=== PATIENT | female | born 1995 | race Two or more races ===

== ENCOUNTER 2024-07-24 22:54 | Emergency (ER) | payer MEDICAID, SELFPAY ==
[2024-07-24 22:55] VITALS: BMI 31.6
[2024-07-24 23:07] VITALS: BP 151/92; PULSE 98; RESP 18; TEMP 36.8; O2SAT 96
--- NOTE | 2024-07-24 23:10 | EDNOTE_ITS ---
ED Female Urogenital RME/HPI General Chief complaint: OB/Uterine Contractions Stated complaint: PREG 12WKS/ ABD PAIN Time Seen by Provider: 07/24/24 23:09 Arrival date/time: 07/24/24 22:54 29F G7/8P2 (patient does not remember) around 12 weeks with history of DM and drug use presents to ED with 1 day of pelvic pain, but denies vaginal bleeding. There may be some dysuria. Limitations: no limitations Related Data Previous Rx's ?Medication ?Instructions ?Recorded ibuprofen 600 mg tablet 600 mg PO Q6H #30 tabs 06/16/24 cefuroxime axetil 500 mg tablet 500 mg PO BID 7 days #14 tabs 07/25/24 Allergies Allergy/AdvReac Type Severity Reaction Status Date / Time No Known Allergies Allergy Verified 06/16/24 17:50 Review of Systems Review of Systems Systems Reviewed: All systems reviewed, normal except as documented Constitutional Constitutional: Reports system reviewed and no additional complaints, except as documented, Denies fever(s) and Denies headache(s) ENT Ears, Nose, Mouth, and Throat: Denies disequilibrium and Denies headache(s) Cardiovascular Cardiovascular: Reports system reviewed and no additional complaints, except as documented, Denies chest pain and Denies dyspnea Respiratory Respiratory: Reports system reviewed and no additional complaints, except as documented, Denies cough and Denies dyspnea Gastrointestinal Gastrointestinal: Reports system reviewed and no additional complaints, except as documented, Denies abdominal pain, Denies nausea and Denies vomiting Genitourinary Genitourinary: Reports as per HPI and Reports pelvic pain Neurologic Neurologic: Reports system reviewed and no additional complaints, except as documented, Denies confusion, Denies disequilibrium and Denies headache(s) Psychiatric Psychiatric: Denies confusion Past Medical History Past Medical History NEUROLOGIC: Negative Neurological Disorders or Seizures CARDIAC: Positive Cardiac Disorders and Hypertension (PIH); Negative Congestive Heart Failure RESPIRATORY: Negative Chronic Obstructive Pulmonary Disease (COPD) or Asthma GASTROINTESTINAL: Positive Gastrointestinal Disorders and Obesity; Negative Hepatitis GENITOURINARY: Positive Genitourinary Disorders (hx UTI); Negative Renal Disease REPRODUCTIVE: Positive Previous Pregnancies; Negative Breast Cancer MUSCULOSKELETAL: Negative Musculoskeletal Disorders ENDOCRINE: Positive Endocrine Disorders and Diabetes Mellitus Type 2; Negative Diabetes Mellitus Type 1 HEMATOLOGIC: Negative Blood Disorders or Sickle Cell Disease PSYCHO/SOCIAL: Positive Anxiety OTHER HISTORY: Negative Hospitalization, Autoimmune Disease, Down Syndrome, Developmental Delay, Shingles, Falls, Blood Transfusions, Blood Transfusion Reaction, Anesthesia Reactions, Organ Transplant, Chemotherapy, Radiation Therapy, Hyperbaric Therapy, MRSA, VRSA, Vancomycin-Resistant Enterococci, Human Immunodeficiency Virus (HIV), Chicken Pox, Measles, Mumps, Rubella (Welsh Measles), Pertussis, Clostridium Difficile or Breast Cancer Family History FAMILY HISTORY: Positive Family Cardiac Disorders (uncle); Negative Family Psychiatric Problems, Family Respiratory Disorders, Family Gastrointestinal Problems, Family Cancer, Family Surgery or Family Anesthesia Reaction Surgical History SURGICAL: Positive Tonsillectomy; Negative Cardiac Surgery, Endocrine Surgery, Abdominal Surgery, Section or Organ Transplant Social History SMOKING STATUS: Current some day smoker SECOND HAND EXPOSURE: No ED Exam General Limitations: Present no limitations General appearance: Present alert and in no apparent distress Head Head exam: Present atraumatic Eye Eye exam: Present normal appearance, PERRL and EOMI ENT ENT exam: Present normal exam, normal oropharynx and mucous membranes moist Neck Neck exam: Present normal inspection, full ROM and trachea midline Chest Chest inspection: Present normal inspection and symmetric chest wall rise Respiratory Respiratory exam: Present normal lung sounds bilaterally Cardiovascular Cardiovascular exam: Present regular rate, normal rhythm and normal heart sounds Abdominal Exam Abdominal exam: Present soft and normal bowel sounds Extremities Exam Extremities exam: Present normal inspection and full ROM Back Exam Back exam: Present normal inspection and full ROM Neurological Exam Neurological exam: Present alert, oriented X3 and CN II-XII intact Psychiatric Psychiatric exam: Present normal affect and normal mood Skin Skin exam: Present warm, dry, intact and normal color Course Quality Measures none Orders Category Date Time Status US OB <= 14 weeks fetus Stat Exams 07/24/24 23:13 Taken ABO/RH Type Stat Lab 07/24/24 23:56 Completed Beta HCG,Quantitative Stat Lab 07/24/24 23:56 Completed CBC Stat Lab 07/24/24 23:56 Completed CMP [Comprehensive Metabolic Panel] Stat Lab 07/24/24 23:56 Completed UA [Urinalysis] Stat Lab 07/24/24 23:37 Completed Urine Culture Stat Lab 07/24/24 23:37 Received cefuroxime axetiL [cefUROXime axetil] Med 07/25/24 02:09 Discontinued 500 mg PO X1 ONE Vital Signs Vital signs: Vital Signs Temperature 98.3 F 07/24/24 23:07 Pulse Rate 98 07/24/24 23:07 Respiratory Rate 18 07/24/24 23:07 Blood Pressure 151/92 H 07/24/24 23:07 Pulse Oximetry (%) 96 07/24/24 23:07 Oxygen Delivery Method Room Air 07/24/24 23:07 O2 at 96% on RA and WNLs Urogenital - Female MDM Narrative MDM Narrative:: 29F G7/8P2 (patient does not remember) around 12 weeks with history of DM and drug use presents to ED with 1 day of pelvic pain, but denies vaginal bleeding. There may be some dysuria. Physical exam reveals no ab/pelvic tenderness. Patient is afebrile, calm, and alert. US normal IUP with normal FHR. Beta HCG peak around 180k. Mild leukocytosis. CMP unremarkable. UA suggests UTI. Patient data External records reviewed:: [facility] previous records Clinical information provided by:: patient Social determinants that could affect healthcare access:: substance use Patient has the following chronic illnesses:: drug use, DM How is presenting disease/condition affected by chronic disease/condition?: exacerbated by Evaluation data The following diagnostics were reviewed and interpreted by me:: lab results and radiology exam(s) Lab and/or radiology exams considered but not ordered:: ordered Interpretation Summary: above Medications / Prescriptions Medications or Prescriptions considered but not ordered:: not ordered Medication administrations:: Medication Administration History Discontinued Medications Cefuroxime Axetil (Cefuroxime Axetil 250 Mg Tablet) 500 mg PO X1 ONE Stop: 07/25/24 02:10 n/a Consultations Consultation(s) initiated? (list below): No Diagnosis Urogenital Female Differential Diagnosis: urinary tract infection, bacterial vaginosis, trichomoniasis, cervicitis, ovarian cyst, vaginitis, ruptured ovarian cyst, cyst of Bartholin's gland, cystitis, dysmenorrhea and other (miscarriage, pelvic pain) Most likely diagnosis given after review of the tests above:: UTI Admission Indicated Admission indicated?: not indicated Admission Request Was there a request for admission?: No Disposition Plan Disposition Plan: Discharge Discharge Attestation Discharge Attestation: The patient and all family members were given an opportunity to ask questions and understood the discharge instructions. Discharge instructions specifically effects, indications for sooner follow up or return to the emergency department, and the expected course of current diagnosis. Patient condition: Stable Discharge Plan Plan Patient Disposition: HOME (Self Care) Disposition Comment: Stable Prescriptions/Referrals Prescriptions/Med Rec: New cefuroxime axetil 500 mg tablet 500 mg PO BID 7 Days Qty: 14 0RF No Action ibuprofen 600 mg tablet 600 mg PO Q6H Qty: 30 0RF Referrals: Temporary Provider,ED [Physician] - In 1 week Problem List Clinical Impression: UTI (urinary tract infection) Patient/Caregiver Discharge Instructions Additional Instructions: Please follow-up with PCP within 24-48 hours and return immediately if symptoms worsen. Print Language: Latvian Stand Alone Forms: Patient Portal Info Letter PA/AIR AND WATER TESTER Supervising Physician KEERTHI/SHAKIRA Supervising Physician: Dr. Bull
--- NOTE | 2024-07-24 23:13 | XR_ITS ---
Examination: Complete OB ultrasound, less than 14 weeks, transabdominal Date and time of exam: July 24, 2024 1119 hours INDICATIONS: Right-sided pelvic pain beginning 3 days ago Technique: Obstetrical ultrasound images less than 14 weeks performed via transabdominal imaging Findings: A normal shaped single intrauterine gestation is present in the uterus. pole 2.2 cm corresponds to 8 week 6 day gestational age Cardiac motion 167 BPM Ultrasonographic survey of visible and placental structures unremarkable. Amniotic fluid volume appears appropriate for this estimated gestational age. Right ovary 3.6 x 2.2 x 2.8 cm arterial flow Left ovary 2.5 x 1.8 x 2.9 cm arterial flow IMPRESSION: Viable intrauterine gestation 8 weeks 6 days.
[2024-07-24 23:45] LABS: Collection Type, Urine Clean Catch
[2024-07-24 23:54] LABS: Bacteria,Urine Rare; Bilirubin,Urine Negative (Negative); Blood,Urine Negative (Negative); Clarity,Urine Turbid (Clear/Hazy); Color,Urine Yellow (Lt Yel-Yel); Glucose, Urine Negative (Negative); Ketones,Urine Negative (Negative); Leukocyte Esterase,Urine Positive (Negative); Nitrite,Urine Positive (Negative); PH,Urine 6.5 (5.0-7.0); Protein,Urine 1+ (Neg - Trace); RBC,Urine 6 /hpf (0-3); Specific Gravity,Urine 1.026 (1.001-1.035); Squamous Epithelial Cell,Urine 3 /hpf (0-5); Urobilinogen,Urine Negative mg/dL (0.0-1.0); WBC,Urine 18 /hpf (0-5)
[2024-07-25 00:47] LABS: Basophils % (Auto) 0 % (0-2.5); Eosinophils # (Auto) 0.1 Thou/mm3 (0.0-0.5); Eosinophils % (Auto) 1 % (0-10); Hematocrit 39.1 % (36.0-46.0); Hemoglobin 12.9 g/dL (12.0-16.0); Immature Granulocytes % (Auto) 1 % (0-0); Lymphocytes # (Auto) 2.8 Thou/mm3 (1.0-4.8); Lymphocytes % (Auto) 23 % (10-50); Mean Corpuscular Hemoglobin 27.6 pg (25.0-35.0); Mean Corpuscular Volume 84 fL (80-100); Monocytes # (Auto) 0.6 Thou/mm3 (0.0-0.8); Monocytes % (Auto) 5 % (0-12); Neutrophils # (Auto) 8.4 Thou/mm3 (1.8-7.7); Neutrophils % (Auto) 70 % (37-80); Nucleated Red Blood Cell % 0 /100 WBC (0); Platelet Count 327 Thou/mm3 (140-440); RDW Standard Deviation 40.8 fL (36.4-46.3); Red Blood Count 4.67 Miln/mm3 (4.00-5.20); White Blood Count 12.1 Thou/mm3 (3.6-11.0)
[2024-07-25 01:00] LABS: Alanine Aminotransferase 19 U/L (10-49); Albumin, Serum 4.2 gm/dL (3.5-5.0); Albumin/Globulin Ratio 1.4 (1.2-2.2); Alkaline Phosphatase 98 U/L (46-116); Anion Gap 5 (7-16); Aspartate Amino Transferase 19 U/L (0-34); BUN/Creatinine Ratio 18 Ratio (12-20); Bilirubin,Total 0.2 mg/dL (0.3-1.2); Blood Urea Nitrogen 11 mg/dL (9-23); Carbon Dioxide 24.5 mMol/L (20.0-31.0); Chloride 107 mMol/L (98-107); Creatinine (Component) 0.6 mg/dL (0.6-1.3); Globulin 3.1 gm/dL (2.3-3.5); Glucose 95 mg/dL (74-106); Osmolality,Calculated 271 (275-295); Sodium 136 mMol/L (136-145); Total Protein 7.3 gm/dL (5.7-8.2); eGFR > 60 See Note
--- NOTE | 2024-07-25 01:23 | PRELIM_ITS ---
Obstetric ultrasound (transabdominal). July 24, 2024 2319 hours Clinical history: Vaginal bleedin g Findings:There is an intrauterine gestation with a single live fetus of mean gestational age 8 week s and 6 days, crown rump length is 2.21 cm. cardiac activity is present at heart rate of 167 be ats per minute. The yolk sac is demonstrated, measuring 0.41 cm. Estimated due date by ultrasound is 02/27/2025.The uterus measures 9.1 x 7.4 x 6.5 cm. There appears to be arcuate uterus slightly indent ing in the fundus. The right ovary measures 3.6 x 2.2 x 2.8 cm. The left ovary measures 2.5 x 1.8 x 2.9 cm. Both ovaries demonstrate color flow and spectral waveforms on Doppler evaluation. There is no free fluid in the pelvis.Impression:Intrauterine gestation with a single live fetus of mean gestatio nal age 8 weeks and 6 days. Report Electronically Signed By: Donald Neely 07/25/2024 1:23:18 AM [EST ]
[2024-07-25 01:40] LABS: Beta HCG,Quantitative 184198 mIU/mL (<5.0)
[2024-07-25] MEDS: cefuroxime axetiL 250 MG TABLET 500 MG PO (02:16)
[2024-07-25 02:17] VITALS: BP 142/88; PULSE 88; RESP 18; TEMP 36.7; O2SAT 99
== END 2024-07-25 02:19 | disposition home or self-care (01) ==
PROVIDERS: Physician Assistant; Emergency Provider Emergency Medicine; PCP Family Medicine
DX: O23.41 Unspecified infection of urinary tract in pregnancy, first trimester (principal); N39.0 Urinary tract infection, site not specified; Z3A.08 8 weeks gestation of pregnancy
CPT/HCPCS: 36415; 76801; 80053; 81001; 84702; 85025; 86900; 86901; 87077; 87086; 87186; 99284; A9270

== ENCOUNTER 2025-02-12 00:17 | Inpatient (IN) | payer MEDICAID, SELFPAY ==
[2025-02-12] VITALS (62 sets, daily range): BP systolic 121–209; BP diastolic 82–133; PULSE 61–97; RESP 14–100; TEMP 36.3–36.7; O2SAT 97–100; BMI 38.2
[2025-02-12 00:44] LABS: ROM Kit Lot # 578010271
[2025-02-12 00:45] LABS: Swb Mxed in Solvent 1 min? Yes
--- NOTE | 2025-02-12 00:46 | XR_ITS ---
Examination: Complete OB ultrasound greater than 14 weeks Date and time of exam: February 12, 2025 0117 hours INDICATIONS: Diagnosis -induced hypertension, preop Findings: Viable intrauterine single fetus with single amniotic sac presentation breech Cardiac motion 127 BPM Placenta posterior grade 3 Amniotic fluid index 5.8 cm spine maternal right Ovaries are obscured by bowel gas. Composite estimated gestational age based on BPD, head circumference, abdominal circumference, femur length is 39 weeks 6 days Estimated weight 3896.5 g. Survey of intracranial anatomy, spinal anatomy, abdominal anatomy, four-chamber heart performed with no abnormalities identified. Impression: Viable intrauterine gestation breech presentation.
[2025-02-12 00:47] LABS: ROM Swab Mixed By: DS; Rupture of Fetal Membranes Negative (Negative)
[2025-02-12] MEDS: LABETALOL INJ 5 MG/ML VIAL 20 ML 20 MG IVP (01:00)
[2025-02-12] MEDS: LABETALOL INJ 5 MG/ML VIAL 20 ML 40 MG IVP ×2 (01:30→05:35)
[2025-02-12] MEDS: FAMOTIDINE INJ 10 MG/ML VIAL 2 ML 20 MG IV (01:36)
[2025-02-12] MEDS: ceFAZolin/D5W 2 GM IV 2 GM/100 ML BAG IV (01:36)
[2025-02-12] MEDS: METOCLOPRAMIDE INJ 5 MG/ML VIAL 2 ML 10 MG IVP (01:37)
[2025-02-12 01:51] LABS: Basophils % (Auto) 0 % (0-2.5); Eosinophils # (Auto) 0.1 Thou/mm3 (0.0-0.5); Eosinophils % (Auto) 1 % (0-10); Hematocrit 34.6 % (36.0-46.0); Hemoglobin 12.2 g/dL (12.0-16.0); Immature Granulocytes % (Auto) 1 % (0-0); Immature Granulocytes Auto 0.11 Thou/mm3 (0.00-0.00); Lymphocytes # (Auto) 2.6 Thou/mm3 (1.0-4.8); Lymphocytes % (Auto) 27 % (10-50); Mean Corpuscular HGB Conc 35.3 g/dl (31.0-37.0); Mean Corpuscular Volume 79 fL (80-100); Monocytes # (Auto) 0.5 Thou/mm3 (0.0-0.8); Monocytes % (Auto) 5 % (0-12); Neutrophils # (Auto) 6.2 Thou/mm3 (1.8-7.7); Neutrophils % (Auto) 66 % (37-80); Nucleated Red Blood Cell % 0 /100 WBC (0); Platelet Count 183 Thou/mm3 (140-440); RDW Standard Deviation 43.6 fL (36.4-46.3); Red Blood Count 4.36 Miln/mm3 (4.00-5.20); White Blood Count 9.3 Thou/mm3 (3.6-11.0)
[2025-02-12] MEDS: hydrALAZINE INJ 20 MG/ML VIAL 5 MG IVP ×3 (02:04→05:15)
[2025-02-12 02:05] LABS: Alanine Aminotransferase 10 U/L (10-49); Albumin, Serum 2.5 gm/dL (3.5-5.0); Albumin/Globulin Ratio 1.1 (1.2-2.2); Alkaline Phosphatase 161 U/L (46-116); Anion Gap 10 (7-16); BUN/Creatinine Ratio 12 Ratio (12-20); Bilirubin,Total 0.2 mg/dL (0.3-1.2); Blood Urea Nitrogen 15 mg/dL (9-23); Calcium 7.8 mg/dL (8.3-10.6); Carbon Dioxide 19.6 mMol/L (20.0-31.0); Chloride 109 mMol/L (98-107); Creatinine (Component) 1.3 mg/dL (0.6-1.3); Estimated Creatinine Clearance 75.8 mL/min (>60); Globulin 2.2 gm/dL (2.3-3.5); Glucose 139 mg/dL (74-106); Osmolality,Calculated 280 (275-295); Potassium 3.7 mMol/L (3.4-5.1); Sodium 139 mMol/L (136-145); Total Protein 4.7 gm/dL (5.7-8.2); Uric Acid 5.9 mg/dL (3.1-7.8); eGFR 57 See Note
--- NOTE | 2025-02-12 02:22 | PRELIM_ITS ---
Obstetric ultrasound. February 12, 2025 0117 hours Clinical history: No care No prior study is available for comparison. Findings: The evaluation is limited due to body habitus. There is a gravid uterus with a live fetus in breech presentation of mean gestational age 39 weeks and 6 days. cardiac activity is present at a heart rate of 127 beats per minute. The placenta is posterior in location, maturity grade 3. There is no evidence of placenta previa or retroplacental he morrhage. Amniotic fluid index is 5.8 cm, with Maximum Vertical Pocket of 3.4 cm. Estimated weight is 3896 grams+/- 577 grams. Impression: Gravid uterus with a single live fetus in breech presentation of mean gestational age 39 weeks 6 days. Borderline macrosomia. Recommend follow-up. Report Electronically Signed By: Donald Neely 02/12/2025 2:21:56 AM [EST]
[2025-02-12 03:13] LABS: Hepatitis B Surface Antigen Non Reactive (Non React); Rubella, IgG Antibody Reactive (Immune)
[2025-02-12 03:26] LABS: MHATP/TP-PA* See Sep Rpt; Syphilis Reactive (Nonreactive)
--- NOTE | 2025-02-12 03:42 | ESHP_ITS ---
Documentation for date of: 02/12/25 OB Labor/Induct. HPI History of Present Illness Chief complaint: Possible ruptured membranes, scant care : 9 Para: 1 Term pregnancies: 1 pregnancies: 0 Living children: 2 History of Abortions: Spontaneous and Elective: 1 History of Vaginal deliveries: 1 History of sections: No History of : No DIMA: 02/13/25 Gestational Age (weeks): 39 Gestational Age (days): 1 History of present illness: Patient is a 30-year-old G9, P2-0-6-2 who presented to triage reporting leaking membranes. She has a history of meth abuse and her blood pressures were extremely elevated in the 180s to 200/100 ratio. She denied right upper quadrant pain or scotoma. She stated her last meth use was 1 week ago. She had a vaginal delivery followed by for breech. By an 8-week ultrasound performed in the ER, the patient is approximately 39 weeks . A stat bedside ultrasound confirmed this. She was consented for a repeat low- transverse section for severely elevated blood pressures. All all labs and PIH labs besides the CBC were pending at the time of C- section. History of Present Dating criteria: based on 1st trimester US only Adequate Care: No Ultrasounds: none Obstetrical complications: gestational diabetes, preeclampsia and other (Morbid obesity) Narrative: Methamphetamine abuse, obesity, poorly controlled diabetes Labs Maternal Blood Type: O Pos Labs: Unknown: RPR, Hepatitis B, Rubella Titre, HIV, Chlamydia, Gonorrhea, Herpes Type 1, Herpes Type 2, Group Beta Strep and Covid-19 Review of Systems Review of Systems Narrative Review of Systems: Patient reports abdominal pain and headaches with no other complaints. She is reporting leaking fluid. AmniSure was negative. No bleeding. Past Medical History Surgical History SURGICAL: Negative Section Meds Home Medications and Allergies Allergies Allergy/AdvReac Type Severity Reaction Status Date / Time No Known Allergies Allergy Verified 02/12/25 00:48 OB Exam Physical Exam Vital signs: Temp Pulse Resp BP Pulse Ox 98.0 F 71 18 184/112 H 99 02/12/25 00:31 02/12/25 02:09 02/12/25 00:31 02/12/25 02:09 02/12/25 02:07 Routine Abdominal Exam Abdominal: Present surgical scars (Pfannenstiel scar present) Comments: Morbidly obese Detailed Labor and Delivery Exam monitor accelerations: 10x10 monitor decelerations: None information technology instructor variability: Minimal (3-5) Contraction frequency (min): Irregular Tachysystole: No OB Results Labs 02/12/25 00:46 02/12/25 00:46 Labs: Short CBC 02/12/25 Range/Units 00:46 WBC 9.3 (3.6-11.0) Thou/mm3 Hgb 12.2 (12.0-16.0) g/dL Hct 34.6 L (36.0-46.0) % Plt Count 183 (140-440) Thou/mm3 BMP 02/12/25 00:46 Sodium 139 Potassium 3.7 Chloride 109 H Carbon Dioxide 19.6 L BUN 15 Creatinine 1.3 Glucose 139 H Calcium 7.8 L Liver Function 02/12/25 Range/Units 00:46 Total Bilirubin 0.2 L (0.3-1.2) mg/dL ALT 10 (10-49) U/L Alkaline Phosphatase 161 H (46-116) U/L Albumin 2.5 L (3.5-5.0) gm/dL OB Assessment & Plan Assessment and Plan (1) Supervision of high risk in third trimester: Status: Acute (2) No care in current : Status: Acute (3) Methamphetamine abuse: Status: Acute (4) Morbid obesity: Status: Acute (5) Previous section complicating : Status: Acute (6) Severe preeclampsia: Status: Acute Assessment and plan: For urgent repeat low-transverse section. Consider magnesium after delivery. Patient was consented for the procedure including the risk of bleeding infection blood transfusion damage to bowel bladder blood vessels other organs prolonged hospital stay further surgery should an above occur (2) No care in current Qualifiers: Trimester: third trimester Qualified Code(s): O09.33 - Supervision of with insufficient care, third trimester (6) Severe preeclampsia Qualifiers: Trimester: third trimester Qualified Code(s): O14.13 - Severe pre-eclampsia, third trimester
[2025-02-12 03:49] LABS: INR 0.9 (0.9-1.3); Prothrombin Time 9.5 Seconds (9.0-12.2)
[2025-02-12 03:52] LABS: Fibrinogen 708 mg/dL (175-375)
--- NOTE | 2025-02-12 03:53 | PD.GYNPROC ---
Operative Note - EMPLOYMENT COORDINATOR Procedure Date of procedure: 02/12/25 Procedure Performed: Repeat low-transverse section Indication: Patient is a 30-year-old -0-6-2 with scant to little care. Allegedly she had visit at [facility]. We have no records. We have an ultrasound on the chart from 8 weeks in the ER. Patient's due date 02/13/2025. She presented with complaints of leaking fluid. Patient's AmniSure was negative but her blood pressures were found to be in the 180s to 200s over 100. She has a history of methamphetamine abuse last use between 3 and 7 days prior to admission. She was consented for an urgent repeat low-transverse section for suspected severe preeclampsia. Pre-Op diagnosis: 1. Intrauterine at 39 weeks 2. Scant to no care 3. Active methyl amphetamine abuse 4. Morbid obesity 5. Severely elevated blood pressures, suspect severe preeclampsia 6. Previous section Post-Op diagnosis: Same and breech presentation Anesthesia type: Spinal Procedure description: After obtaining informed consent, the patient was brought back to the operating room and spinal anesthesia administered. She was then prepped and draped in the dorsal supine position with a leftward tilt in a normal sterile fashion. A Cheatham catheter was inserted to the patient's bladder. Patient was given 2 g of Ancef by anesthesia. A Pfannenstiel skin incision was made with a scalpel through the patient's prior scar and carried down to the underlying fascia. The fascia was incised in the midline and the fascial incision extended laterally using Mishra scissors. The superior aspect the fascia was grasped Alix clamps and the underlying rectus muscles dissected off using blunt and sharp dissection. This was repeated in the inferior aspect the incision. The rectus muscles were in the midline and the peritoneum was entered bluntly with the surgeon's fingers. This was extended superiorly and inferiorly with good visualization of the bladder. The bladder blade was inserted and the uterus was incised in a low transverse fashion using a scalpel above the bladder reflection. The uterine incision was extended laterally using blunt dissection with the surgeon's fingers. The bag escalera was ruptured, and clear fluid was noted. The bladder blade was removed and the was delivered in a double footling breech presentation. Some difficulty was encountered in delivering the head and a vacuum was called for to deliver the head which was wedged up in the right horn of the patient's uterus. The cord was clamped cut and the was handed off to the waiting pediatric staff. Cord blood and cord gases were sent. The placenta was then manually removed and the uterus was exteriorized and cleared of all clots and debris. The uterine incision was repaired using 0 Monocryl in a running locked fashion. Excellent hemostasis was noted. The uterus was returned to the patient's abdominal cavity and copious irrigation carried out with warm normal saline. The uterine incision was reexamined several times and noted be hemostatic. After ensuring the rectus muscles were hemostatic, these were reapproximated in the midline using a running suture of 0 Monocryl. The fascia was closed with 0 Vicryl in a running fashion. The subcutaneous tissues were irrigated found to be hemostatic. These were reapproximated using running suture of 2-0 plain. The skin was closed with a subcuticular suture of 4-0 Monocryl. The patient tolerated the procedure well, sponge, lap, instrument, and needle counts were correct x 2. The patient went to the recovery area awake and in stable condition. Of note the baby went to the NICU for observation but is but was doing well at the time of dictation. Fluids: crystalloid Fluid amount (mL): 2,500 Urine output (mL): 100 Specimen: none Implants: none Estimated blood loss (ml): 350 Findings: Liveborn male in the double footling breech presentation with no nuchal cord no meconium Apgars were 7, 9 and 9 weight was 7 pounds 12 ounces. The placenta was complete spontaneous grossly normal. 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 Ovaries and fallopian tubes appear grossly normal. There was very little scar tissue present in the patient's abdomen. Complications: none Surgical staff Operation Date: 02/12/25 02:15 Case Staff ADJUNCT PSYCHOLOGY FACULTY MEMBER: Khai Cabrera RN First Assistant: Radha Cardoza Diagnosis Discharge Diagnosis (1) Severe preeclampsia: Status: Acute (2) Previous section complicating : Status: Acute (3) Morbid obesity: Status: Acute (4) Methamphetamine abuse: Status: Acute (5) No care in current : Status: Acute (6) Supervision of high risk in third trimester: Status: Acute Problem List Completed Was Problem List Reviewed/Reconciled?: Yes (1) Severe preeclampsia Qualifiers: Trimester: third trimester Qualified Code(s): O14.13 - Severe pre-eclampsia, third trimester (5) No care in current Qualifiers: Trimester: third trimester Qualified Code(s): O09.33 - Supervision of with insufficient care, third trimester
[2025-02-12] MEDS: OXYTOCIN in NS 20 units 20 UNIT/1,000 ML BAG 125 UNIT IV ×2 (04:04→13:00)
--- NOTE | 2025-02-12 04:09 | OBDSUM_ITS ---
Data ([place]) Data Hx Section: No Maternal Blood Type: O Pos Rubella Titre: Unknown RPR: Unknown Labs: Unknown: RPR, Hepatitis B, HIV, Chlamydia, Gonorrhea, Herpes Type 1, Herpes Type 2 and Group Beta Strep : 9 Term: 2 : 0 Livin Abortions: Spontaneous & Theraputic: 6 Delivery Data ([place]) Labor Data ROM date: 02/12/25 ROM time: 00:00 Amniotic membrane rupture type: Spontaneous Amniotic fluid description: Clear Delivery Data EDC: 02/13/25 EDC calculated by:: LMP/early US confirmation Date of arrival to unit: 02/12/25 delivery date: 02/12/25 [place] delivery time: 02:44 Gestational age (weeks): 39 Gestational age (days): 6 Placenta delivery date: 02/12/25 Placenta delivery time: 02:45 Delivered by: Boken Delivery nurse: Anyi Bennett nurse: Alivia QUEZADA Television News Reporter at delivery: No Support person(s) at delivery: Patient's mother Delivery Method Delivery method: Low Transverse Presentation: Footling Anesthesia Type Anesthesia Type: Spinal Anesthesia type: Spinal Placenta Placenta delivery description: Manual Removal Placenta Disposition: Sent to Pathology Cord blood sent to lab: Yes cord blood collection: Cord Blood Type, Arterial Cord Blood Gas and Venous Cord Blood Gas EBL Estimated blood loss (ml): 350 Umbilical Cord cord description: 3 Vessels Additional Procedures See op report for further details Complications Complications: None [place] Data ([place]) [place] Data [place]'s gender: Male weight (gms): 3515.341 g 1 minute: 7 5 minutes: 9 10 minutes: 9
[2025-02-12] MEDS: hydrALAZINE INJ 20 MG/ML VIAL (04:55)
[2025-02-12 05:31] LABS: Collection Type, Urine Voided
[2025-02-12 05:46] LABS: Bilirubin,Urine Negative (Negative); Blood,Urine 2+ (Negative); Clarity,Urine Turbid (Clear/Hazy); Color,Urine Lt-Yellow (Lt Yel-Yel); Glucose, Urine 2+ (Negative); Hyaline Casts,Urine < 1 /hpf (0-1); Ketones,Urine Negative (Negative); Leukocyte Esterase,Urine Negative (Negative); Nitrite,Urine Negative (Negative); Protein,Urine 3+ (Neg - Trace); RBC,Urine 30 /hpf (0-3); Specific Gravity,Urine 1.021 (1.001-1.035); Squamous Epithelial Cell,Urine 1 /hpf (0-5); Urobilinogen,Urine Negative mg/dL (0.0-1.0); WBC,Urine 10 /hpf (0-5)
[2025-02-12] MEDS: KETOROLAC INJ 30 MG/ML VIAL IVP (05:50)
[2025-02-12] MEDS: ONDANSETRON INJ 2 MG/ML INJ 2 ML 4 MG IVP ×2 (05:53→11:02)
[2025-02-12 05:56] LABS: Amphetamine/Metham Scrn,Ur OB Positive (Negative); Benzoylecgonine Screen, Ur OB Negative (Negative); Creatinine,Random Urine 108 mg/dL (30-125); Opiate Screen,Urine OB Negative (Negative); THC Screen,Urine OB Negative (Negative)
[2025-02-12] MEDS: NIFEdipine XL 30 MG TABCR PO ×2 (05:58→21:06)
[2025-02-12 06:13] LABS: Protein Total, Random Urine 1035 mg/dL (1-14)
[2025-02-12 06:14] LABS: Amphetamines/Metham U Confirm* See Sep Rpt
--- NOTE | 2025-02-12 08:01 | XR_ITS ---
Examination: AP chest single view Technique one AP portable semiupright chest single view Date and time: February 12, 2025 0825 hours INDICATIONS: Shortness of breath post FINDINGS: Normal heart size No aspiration pneumonia. No pulmonary edema. The osseous structures are intact IMPRESSION: No active disease
[2025-02-12 09:27] LABS: B-Type Natriuretic Peptide 224 pg/mL (0-100)
[2025-02-12 09:28] LABS: Alanine Aminotransferase 8 U/L (10-49); Albumin, Serum 2.5 gm/dL (3.5-5.0); Albumin/Globulin Ratio 1.2 (1.2-2.2); Alkaline Phosphatase 142 U/L (46-116); Anion Gap 10 (7-16); BUN/Creatinine Ratio 13 Ratio (12-20); Bilirubin,Total 0.2 mg/dL (0.3-1.2); Blood Urea Nitrogen 14 mg/dL (9-23); Calcium 7.8 mg/dL (8.3-10.6); Carbon Dioxide 18.8 mMol/L (20.0-31.0); Chloride 106 mMol/L (98-107); Creatinine (Component) 1.1 mg/dL (0.6-1.3); Estimated Creatinine Clearance 89.6 mL/min (>60); Globulin 2.1 gm/dL (2.3-3.5); Glucose 154 mg/dL (74-106); Osmolality,Calculated 273 (275-295); Potassium 4.1 mMol/L (3.4-5.1); Sodium 135 mMol/L (136-145); Total Protein 4.6 gm/dL (5.7-8.2); eGFR > 60 See Note
[2025-02-12 09:56] LABS: HIV (1&2) Antibody Rapid Non-Reactive
[2025-02-12] MEDS: hydroCHLOROthiazide 12.5 MG CAPSULE 25 MG PO (10:56)
--- NOTE | 2025-02-12 11:35 | PC.NURSE ---
CPS worker Shani Espinoza here to see patient
[2025-02-12] MEDS: LABETALOL INJ 5 MG/ML VIAL 20 ML 60 MG IVP (12:15)
--- NOTE | 2025-02-12 13:32 | ECHO_ITS ---
Transthoracic Echo Report Ht (in): 65 Wt (lb): 230 Exam Location: Echo Lab Status: Inpatient Cyber Reverse Engineer: Deana Torrez Indications: Procedure Performed: BP: 160 / 92 HR: 70 Technical Quality: Technically Difficult Due To Recent /Body Habitus MEASUREMENTS (Male / Female) Normal Values 2D ECHO LV Diastolic Diameter PLAX 4.7 cm 4.2 - 5.9 / 3.9 - 5.3 cm LV Systolic Diameter PLAX 3.4 cm IVS Diastolic Thickness 0.7 cm 0.6 - 1.0 / 0.6 - 0.9 cm LVPW Diastolic Thickness 1.1 cm 0.6 - 1.0 / 0.6 - 0.9 cm LV Relative Wall Thickness 0.4 LVOT Diameter 2.0 cm LA Volume Index 27.1 cm?/m? 16 - 28 cm?/m? Ascending Aorta Diameter 2.7 cm DOPPLER AV Peak Velocity 111.0 cm/s AV Peak Gradient 4.9 mmHg LVOT Peak Velocity 76.2 cm/s LVOT Peak Gradient 2.3 mmHg AV Area Cont Eq pk 2.2 cm? MV Area PHT 3.1 cm? Mitral E Point Velocity 82.0 cm/s Mitral A Point Velocity 74.2 cm/s Mitral E to A Ratio 1.1 LV E' Lateral Velocity 5.5 cm/s Mitral E to LV E' Lateral Ratio 14.8 LV E' Septal Velocity 5.0 cm/s Mitral E to LV E' Septal Ratio 16.4 PV Peak Velocity 90.9 cm/s PV Peak Gradient 3.3 mmHg FINDINGS Left Ventricle Normal left ventricular size, wall thickness, systolic function with no obvious regional wall motion abnormalities. Normal left ventricular diastolic filling pattern for age. The ejection fraction is visually estimated at 54 %. Right Ventricle The right ventricle is not well visualized. Left Atrium The left atrium is normal by two-dimensional, color flow and Doppler imaging with no structural abnormalities, no thrombus formation present. Right Atrium The right atrium is normal by two-dimensional imaging, color flow and Doppler imaging with no structural abnormalities, no thrombus formation present. Atrial Septum The interatrial septum appears normal with no evidence of a shunt. Aorta The aorta is normal by two-dimensional, color flow and Doppler interrogation. Mitral Valve The mitral valve is normal by two-dimensional, color flow and Doppler interrogation. There is trace mitral regurgitation. Aortic Valve The aortic valve is trileaflet and normal by two-dimensional, color flow and Doppler interrogation. There is no significant aortic valve regurgitation. Tricuspid Valve The tricuspid valve is normal by two-dimensional, color flow and Doppler interrogation. There is no significant mitral valve regurgitation, senosis or prolapse. Pulmonic Valve The pulmonic valve is not well visualized. There is no significant pulmonic valve regurgitation. Vessels The pulmonary artery appears normal. The inferior vena cava pulmonary and hepatic veins are not visualized. Pericardium The pericardium is normal by two-dimensional imaging. There is no significant pericardial effusion. CONCLUSIONS Indications: Preecalmpsia Technically Difficult Study Normal left ventricular size and function. Approximate ejection fraction is 55%. No wall motion abnormalities noted. Trace MR. No pericardial effusion. Princess Otoole (Electronically Signed) Final Date: 12 February 2025 22:13
[2025-02-12] MEDS: hydrALAZINE HCL 10 MG TABLET PO ×2 (14:07→22:19)
--- NOTE | 2025-02-12 14:13 | ESCONSULT_ITS ---
HPI Data of Consult Requesting Physician: Yovani Small MD Admitting Provider: Swati Day MD ([facility]) Attending Provider: Yovani Small MD Primary Care Provider: Physician No Primary/Family Consult Narrative History of present illness: Jessie Stanton is a 30-year-old female with history of amphetamine use and gestational hypertension who presented on 02/12 reporting leaking membranes. Noted to have blood pressures in 200s/120s on admission with associated spotty vision but no blurry vision, headaches, epistaxis, abdominal pain. Noted to be amphetamine positive on urine tox screen and states that her last use was 1 week prior to admission. Ultrasound in ER confirmed 39-week with little to no care and patient was taken to OR for section. 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 Internal medicine consulted for management of significantly elevated blood pressures in setting of preeclampsia. cc:: cc: Yovani Small MD Review of Systems Review of Systems Systems Reviewed: All systems reviewed, normal except as documented Exam Vital Signs Temp Pulse Resp BP Pulse Ox O2 Del Method 97.9 F 63 18 179/105 H 99 Room Air 02/12/25 12:55 02/12/25 14:07 02/12/25 12:55 02/12/25 14:07 02/12/25 12:55 02/12/25 07:58 Narrative Exam General: AOx3, fatigued, no acute distress, able to speak full sentences HEENT: NC/AT, mucous membranes moist, bilateral sclera anicteric Cardiovascular: regular rate and rhythm, S1/S2 present, no murmurs appreciated Pulmonary: clear to auscultation bilaterally, no rales/rhonchi/wheezes Abdominal: soft, non-tender, non-distended, no rebound/guarding, normal bowel sounds present Musculoskeletal: normal ROM, no peripheral edema Skin: warm and dry, intact, no rashes Neuro: CN II-XII intact, no focal deficits Results Labs 02/13/25 04:55 02/13/25 04:55 Labs: Short CBC 02/12/25 Range/Units 00:46 WBC 9.3 (3.6-11.0) Thou/mm3 Hgb 12.2 (12.0-16.0) g/dL Hct 34.6 L (36.0-46.0) % Plt Count 183 (140-440) Thou/mm3 BMP 02/12/25 02/12/25 00:46 08:50 Sodium 139 135 L Potassium 3.7 4.1 Chloride 109 H 106 Carbon Dioxide 19.6 L 18.8 L BUN 15 14 Creatinine 1.3 1.1 Glucose 139 H 154 H Calcium 7.8 L 7.8 L Liver Function 02/12/25 02/12/25 Range/Units 00:46 08:50 Total Bilirubin 0.2 L 0.2 L (0.3-1.2) mg/dL ALT 10 8 L (10-49) U/L Alkaline Phosphatase 161 H 142 H (46-116) U/L Albumin 2.5 L 2.5 L (3.5-5.0) gm/dL Urine 02/12/25 Range/Units 05:25 Urine Color Lt-Yellow (Lt Yel-Yel) Urine Clarity Turbid A (Clear/Hazy) Urine pH 7.0 (5.0-7.0) Ur Specific Rawlings 1.021 (1.001-1.035) Urine Protein 3+ A (Neg - Trace) Urine Glucose (UA) 2+ A (Negative) Quality Measures Quality Measures VTE prophylaxis Medications Home Medications and Allergies Allergies Allergy/AdvReac Type Severity Reaction Status Date / Time No Known Allergies Allergy Verified 02/12/25 00:48 Visit Medications Diphtheria/Tetanus/Acell Pertussis (Diphth,Pertuss(Acell),Tet Vac 0.5 Ml Syr- Adult) 0.5 ml IMi X1 PRN PRN Reason: SEE COMMENTS Docusate Sodium (Docusate Sod 100 Mg Capsule) 100 mg PO QDAY [facility] Stop: 03/14/25 08:59 Last Admin: 02/12/25 10:24 Dose: Not Given Hydralazine HCl (Hydralazine Inj 20 Mg/Ml Vial) 5 mg IVP Q20MIN PRN PRN Reason: htn Last Admin: 02/12/25 05:15 Dose: 5 mg Hydralazine HCl (Hydralazine Hcl 10 Mg Tablet) 10 mg PO TID BONNIE Stop: 03/14/25 13:59 Last Admin: 02/12/25 14:07 Dose: 10 mg Hydrochlorothiazide (Hydrochlorothiazide 12.5 Mg Capsule) 25 mg PO QDAY [facility] Stop: 03/14/25 10:44 Last Admin: 02/12/25 10:56 Dose: 25 mg Hydromorphone HCl (Hydromorphone Hcl 2 Mg Tablet) 2 mg PO Q4HR PRN PRN Reason: PAIN SCALE 4-10(Mod-Sev Stop: 02/17/25 12:09 Oxytocin/Sodium Chloride (Pitocin 20 Units In Ns) 20 unit in 1,000 mls @ 125 mls/hr IV .Q8H [facility] Stop: 02/12/25 20:29 Last Admin: 02/12/25 13:00 Dose: 125 mls/hr Acetaminophen (Ofirmev Inj) 1,000 mg in 100 mls @ 250 mls/hr IV Q6H [facility] Stop: 02/13/25 06:33 Ibuprofen (Ibuprofen Tab 400 Mg Tablet) 800 mg PO X1 PRN PRN Reason: uterine cramping Magnesium Hydroxide (Milk Of Magnesia Susp 30 Ml Udc) 30 ml PO PRNMRX1 PRN PRN Reason: CONSTIPATION Stop: 03/14/25 04:15 Measles/Mumps/Rubella Vaccine Live (Measles, Mumps & Rubella Vacc 0.5 Ml Vial) 0.5 ml SCi X1 PRN PRN Reason: if non-immune or equivocal Nifedipine (Nifedipine Xl 30 Mg Tabcr) 30 mg PO BID [facility] Stop: 03/14/25 04:24 Last Admin: 02/12/25 10:24 Dose: Not Given Ondansetron HCl (Ondansetron Inj 2 Mg/Ml Inj 2 Ml) 4 mg IVP Q4HR PRN; Protocol PRN Reason: NAUSEA OR VOMITING Stop: 03/14/25 05:22 Last Admin: 02/12/25 11:02 Dose: 4 mg Simethicone (Simethicone 80 Mg Chew) 80 mg PO Q4HR PRN PRN Reason: GAS Stop: 03/14/25 04:15 Discontinued Medications Acetaminophen (Acetaminophen 325 Mg Tablet) 325 mg PO Q4HR PRN PRN Reason: Patient rated pain 1 to 2 Stop: 03/14/25 04:15 Acetaminophen (Acetaminophen 325 Mg Tablet) 650 mg PO Q6HR PRN PRN Reason: Patient rated pain of 3 Stop: 03/14/25 04:15 Hydrocodone Bitart/Acetaminophen (Hydrocodone/Apap 5/325 Tablet) 1 tab PO Q4HR PRN PRN Reason: Patient rated pain 7 to 8 Stop: 02/17/25 04:15 Hydrocodone Bitart/Acetaminophen (Hydrocodone/Apap 5/325 Tablet) 2 tab PO Q6HR PRN PRN Reason: Patient rated pain 9 to 10 Stop: 02/17/25 04:15 Carboprost Tromethamine (Carboprost Trometh Inj 250 Mcg/Ml Vial) 250 mcg IM X1 PRN PRN Reason: refractory hemorrhage Citric Acid/Sodium Citrate (Citric Acid/Sodium Citr 15 Ml Udc (Bicitra)) 30 ml PO X1 ONE Stop: 02/12/25 00:47 Famotidine (Famotidine Inj 10 Mg/Ml Vial 2 Ml) 20 mg IV X1 ONE Stop: 02/12/25 00:47 Last Admin: 02/12/25 01:36 Dose: 20 mg Hydralazine HCl (Hydralazine Inj 20 Mg/Ml Vial) 5 mg IVP X1 ONE Stop: 02/12/25 01:58 Last Admin: 02/12/25 02:04 Dose: 5 mg Lactated Ringer's (Lactated Ringers) 1,000 mls @ 100 mls/hr IV .Q10H [facility] Stop: 03/14/25 00:44 Lactated Ringer's (Lactated Ringers) 500 mls @ 999 mls/hr IV .Q31M PRN PRN Reason: HR tracing (Per Policy) Stop: 03/14/25 00:40 Tranexamic Acid (Tranexamic Acid Ivpb) 1,000 mg in 100 mls @ 200 mls/hr IV PRNMRX1 PRN PRN Reason: BLEEDING Oxytocin/Sodium Chloride (Pitocin 20 Units In Ns) 20 unit in 1,000 mls @ 125 mls/hr IV .Q8H [facility] Stop: 03/14/25 00:44 Last Admin: 02/12/25 04:04 Dose: 125 mls/hr Cefazolin Sodium (Ancef 2gm Ivpb) 2 gm in 100 mls @ 200 mls/hr IV X1 ONE Stop: 02/12/25 01:15 Last Admin: 02/12/25 01:36 Dose: 200 mls/hr Lactated Ringer's (Lactated Ringers) 1,000 mls @ 100 mls/hr IV .Q10H [facility] Stop: 03/14/25 20:29 Ketorolac Tromethamine (Ketorolac Inj 30 Mg/Ml Vial) 30 mg IVP Q6HR [facility] Stop: 02/14/25 05:59 Last Admin: 02/12/25 05:50 Dose: 30 mg Labetalol HCl (Labetalol Inj 5 Mg/Ml Vial 20 Ml) 20 mg IVP X1 ONE Stop: 02/12/25 00:50 Last Admin: 02/12/25 01:00 Dose: 20 mg Labetalol HCl (Labetalol Inj 5 Mg/Ml Vial 20 Ml) 40 mg IVP X1 ONE Stop: 02/12/25 01:28 Last Admin: 02/12/25 01:30 Dose: 40 mg Labetalol HCl (Labetalol Inj 5 Mg/Ml Vial 20 Ml) 40 mg IVP X1 ONE Stop: 02/12/25 05:24 Last Admin: 02/12/25 05:35 Dose: 40 mg Labetalol HCl (Labetalol Inj 5 Mg/Ml Vial 20 Ml) 60 mg IVP X1 ONE Stop: 02/12/25 12:02 Last Admin: 02/12/25 12:15 Dose: 60 mg Lidocaine HCl (Lidocaine Hcl 1% 20 Ml Vial) 20 ml INFL X1 PRN PRN Reason: EPISIOTOMY PAIN Metoclopramide HCl (Metoclopramide Inj 5 Mg/Ml Vial 2 Ml) 10 mg IVP X1 ONE; Protocol Stop: 02/12/25 01:33 Last Admin: 02/12/25 01:37 Dose: 10 mg Mineral Oil (Mineral Oil 30 Ml Udc) 30 ml TOP PRN PRN PRN Reason: To perineum for delivery. Stop: 03/14/25 00:40 Misoprostol (Misoprostol 200 Mcg Tablet) 800 mcg PA X1 PRN PRN Reason: BLEEDING Oxytocin (Oxytocin Inj 10 Unit/Ml Vial) 10 unit IM X1 PRN PRN Reason: After placenta delivers Assessment & Plan Plan Jessie Stanton is a 30-year-old female with history of amphetamine use and gestational hypertension for which internal medicine was consulted for management of hypertension in setting of preeclampsia. #Hypertensive emergency #Preeclampsia #Acute kidney injury Initially presented with BP of 200s/120s with associated spotty vision but denied headaches, epistaxis, abdominal pain. CBC unremarkable, CHEM panel showed creatinine of 1.3 and patient's baseline appears to be around 0.8, BNP mildly elevated and urine random protein of 1000. Patient had already received labetalol, hydralazine, nifedipine, and hydrochlorothiazide for which blood pressure continues to remain elevated in 170s/100s. Patient states that she does not plan to breast-feed and so can consider other agents if BP continues to be difficult to manage. ? Hydralazine 10 mg p.o. 3 times daily ? Hydrochlorothiazide 25 mg p.o. daily ? Nifedipine 30 mg p.o. twice daily ? Given that patient has been refractory to above medications, can consider nicardipine infusion 5 mg/h IV and titrate by 0.5 to 1 mg/h at 15-minute intervals to achieve target BP; maximum dose: 15 mg/hour ----- Plan discussed with attending physician Dr. Mercedes Pina MD PGY-1 Internal Medicine Attending Provider Attestation/Addendum I have examined the patient, reviewed labs and imaging findings, discussed the case with the resident(s), and reviewed entered orders. I agree with the plan of care as outlined in this note, with these additional summaries/recommendations: Patient is a 30-year-old female with medical history of polysubstance abuse, obesity, and multiple pregnancies with little to no care presented to [facility] emergency department on 02/12/2025 with chief complaint of ruptured membranes. Hospitalist team consulted for elevated blood pressure and BNP. Patient seen at bedside and currently denying pain although significant nausea present and patient vomited x 1 when I was at bedside. No blood in vomit noted. Per patient she has never been formally diagnosed with high blood pressure. While at bedside systolic blood pressure trending in the 160s. Patient likely has primary hypertension although will need to continue outpatient monitoring once medically cleared for discharge to confirm diagnosis. Elevated blood pressure likely multifactorial secondary to primary hypertension plus preeclampsia plus methamphetamine use/withdrawal. Low suspicion for secondary cause of hypertension at this time. I agree with the current regimen of hydralazine 10 mg p.o. 3 times daily, hydrochlorothiazide 25 mg p.o. daily, and nifedipine 30 mg p.o. twice daily. I have added hydralazine 10 mg IV every 6 hours as needed for systolic blood pressure greater than 180. Max dose of hydralazine and 24- hour period is 200 mg. My current systolic blood pressure goal for patient is in the 150s. We will continue to uptitrate oral antihypertensives as needed and if needed will add beta-alen to her regimen. Patient also noted to have slightly elevated BNP and some bilateral lower extremity edema. We will order echocardiogram to rule out heart failure. Low suspicion for peripartum cardiomyopathy but patient may have developed some heart failure from continued methamphetamine usage. Patient counseled on cessation and in agreement. All questions answered to satisfaction. Please see residents note for additional details of management. Thank you for allowing us to participate in this patient's care. We will continue to follow the patient with you. Dr. Mercedes MD
--- NOTE | 2025-02-12 14:29 | PC.SS ---
Addendum entered by ERIKA Morrison 02/12/25 16:45: SS follow up: left a voicemail for CWS-social sciences research scientist, Shani Espinoza in regards to the status update. disability services coordinator to follow up tomorrow on status. Original Note: SS Late entry: LIDDER was contacted by hospital staff that [facility] Welfare Services social sciences research scientist was present to speak with the patient. LIDDER met with S-head screen worker Shani Espinoza who informed she was responding to an immediate referral regarding anonymous report with concerns of neglect on behalf of the new born infant child. Per social sciences research scientist, at this time there are no grounds to detain the patient's child. head screen worker informs that she will conducting an on-going investigation to determine if there is a sober reticle printer and appropriate housing/living arrangements for the patient's infant including items available to care for the as the patient has identified she would like her mother, Alise Guadalupe to be the designated sober reticle printer. head screen worker informs she will update hospital staff regarding the investigation prior to patient and patient's infants child's discharge. LIDDER provided CWS-head screen worker with contact information to be updated on status.
[2025-02-12] MEDS: ACETAMINOPHEN IVPB 1,000 MG/100 ML VIAL 250 MG IV (19:46)
[2025-02-13] VITALS (14 sets, daily range): BP systolic 126–178; BP diastolic 80–118; PULSE 67–102; RESP 18–19; TEMP 36.6–37.1; O2SAT 96
[2025-02-13] MEDS: HYDROMORPHONE HCL 2 MG TABLET PO ×3 (00:48→13:22)
[2025-02-13] MEDS: ACETAMINOPHEN IVPB 1,000 MG/100 ML VIAL 250 MG IV ×2 (01:31→06:27)
[2025-02-13] MEDS: hydrALAZINE HCL 10 MG TABLET PO (05:42)
[2025-02-13 05:44] LABS: Basophils % (Auto) 0 % (0-2.5); Eosinophils % (Auto) 0 % (0-10); Hematocrit 41.4 % (36.0-46.0); Hemoglobin 14.2 g/dL (12.0-16.0); Immature Granulocytes % (Auto) 1 % (0-0); Immature Granulocytes Auto 0.15 Thou/mm3 (0.00-0.00); Lymphocytes # (Auto) 1.6 Thou/mm3 (1.0-4.8); Lymphocytes % (Auto) 9 % (10-50); Mean Corpuscular HGB Conc 34.3 g/dl (31.0-37.0); Mean Corpuscular Hemoglobin 28.1 pg (25.0-35.0); Mean Corpuscular Volume 82 fL (80-100); Monocytes # (Auto) 0.5 Thou/mm3 (0.0-0.8); Monocytes % (Auto) 3 % (0-12); Neutrophils # (Auto) 15.5 Thou/mm3 (1.8-7.7); Neutrophils % (Auto) 87 % (37-80); Nucleated Red Blood Cell % 0 /100 WBC (0); Platelet Count 246 Thou/mm3 (140-440); RDW Standard Deviation 45.8 fL (36.4-46.3); Red Blood Count 5.05 Miln/mm3 (4.00-5.20); White Blood Count 17.8 Thou/mm3 (3.6-11.0)
[2025-02-13 06:43] LABS: Alanine Aminotransferase 12 U/L (10-49); Albumin, Serum 2.3 gm/dL (3.5-5.0); Albumin/Globulin Ratio 1.2 (1.2-2.2); Alkaline Phosphatase 150 U/L (46-116); Anion Gap 11 (7-16); Aspartate Amino Transferase 33 U/L (0-34); BUN/Creatinine Ratio 18 Ratio (12-20); Bilirubin,Total 0.2 mg/dL (0.3-1.2); Blood Urea Nitrogen 18 mg/dL (9-23); Calcium 7.3 mg/dL (8.3-10.6); Calcium (Corrected) 8.7 mg/dL (8.5-10.1); Chloride 108 mMol/L (98-107); Estimated Creatinine Clearance 98.6 mL/min (>60); Glucose 124 mg/dL (74-106); Magnesium 1.7 mg/dL (1.6-2.6); Osmolality,Calculated 276 (275-295); Phosphorous 4.3 mg/dL (2.4-5.1); Potassium 4.4 mMol/L (3.4-5.1); Sodium 137 mMol/L (136-145); Total Protein 4.3 gm/dL (5.7-8.2); eGFR > 60 See Note
--- NOTE | 2025-02-13 08:07 | PD.LDDS ---
DS: Providers Provider Date of admission: 02/12/25 00:41 Primary care physician: Physician No Primary/Family Admitting Provider: Swati Day MD ([facility]) Attending Provider on Admission: Abdulkadir Puente MD Consults: 02/12/25 12:13 Consult to Adult Hospitalist Stat Comment: Consulting Provider: Parviz Long Attending Provider on DC: Abdulkadir Puente MD Discharging Provider: Abdulkadir Puente MD DS: Diagnosis Discharge Diagnosis (1) Uncontrolled hypertension: Status: Acute (2) Severe preeclampsia: Status: Acute (3) Previous section complicating : Status: Acute (4) Morbid obesity: Status: Acute (5) Methamphetamine abuse: Status: Acute (6) No care in current : Status: Acute (7) Supervision of high risk in third trimester: Status: Acute (8) Homeless: Status: Acute (9) Type 2 diabetes mellitus affecting in third trimester, antepartum: Status: Acute Problem List Completed Was Problem List Reviewed/Reconciled?: Yes Summary/Hosp Course Brief History: Jessie Stanton is a 30-year-old female with history of amphetamine use and gestational hypertension who presented on 02/12 reporting leaking membranes. Noted to have blood pressures in 200s/120s on admission with associated spotty vision but no blurry vision, headaches, epistaxis, abdominal pain. Noted to be amphetamine positive on urine tox screen and states that her last use was 1 week prior to admission. Ultrasound in ER confirmed 39-week with little to no care and patient was taken to OR for section. 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 Internal medicine consulted for management of significantly elevated blood pressures in setting of preeclampsia. Peripartum Data Delivery Method: Low Transverse Episiotomy Description: None Procedures: Procedures Operation Date: 02/12/25 02:15 Actual Procedure Side Surgeon p in OB Not Applicable Swati Day ([facility])MD Time Spent with Patient Time attestation: Total time spent providing and/or coordinating discharge services: Exam Vital Signs Temp Pulse Resp BP Pulse Ox O2 Del Method 98.0 F 73 18 175/103 H 97 Room Air 02/13/25 05:30 02/13/25 05:42 02/13/25 05:30 02/13/25 05:42 02/12/25 21:00 02/12/25 21:00 Discharge Plan Plan Patient Disposition: HOME (Self Care) Patient condition on transfer: Stable Prescriptions/Referrals Prescriptions/Med Rec: New hydrocodone-acetaminophen 5-325 mg tablet 1 tab PO Q6H MDD 4 PRN (Reason: pain) Qty: 20 0RF Rx Instructions: she had a c section ibuprofen 600 mg tablet 600 mg PO Q6H PRN (Reason: pain) Qty: 30 0RF nicardipine 20 mg capsule 20 mg PO BID Qty: 60 1RF lisinopril 40 mg tablet 40 mg PO QDAY Qty: 30 1RF labetalol 100 mg tablet 100 mg PO BID Qty: 60 1RF hydrocortisone [Anusol-HC] 2.5 % cream with perineal applicator 1 applic [place] QDAY PRN (Reason: hemorrhoids) Qty: 30 1RF metformin 1,000 mg tablet extended release 24hr 1,000 mg PO QDAY Qty: 30 1RF Discontinued ibuprofen 600 mg tablet 600 mg PO Q6H Qty: 30 0RF Referrals: No Primary/Family,Physician [Primary Care Provider] - Patient/Caregiver Discharge Instructions Discharge Activity: activity as tolerated Other Discharge Activity Instructions:: Follow up office in 1 week. Education Materials: C Section Dc Print Language: Japanese Stand Alone Forms: Shani Award Info., Patient Portal Info Letter Discharge Order Discharge Orders: Discharge (Routine); Ordered 02/14/25 Ordered By: Abdulkadir Puente Planned Discharge Date 02/14/25 (2) Severe preeclampsia Qualifiers: Trimester: third trimester Qualified Code(s): O14.13 - Severe pre-eclampsia, third trimester (6) No care in current Qualifiers: Trimester: third trimester Qualified Code(s): O09.33 - Supervision of with insufficient care, third trimester
[2025-02-13] MEDS: NIFEdipine XL 30 MG TABCR PO (08:18)
[2025-02-13] MEDS: DOCUSATE SOD 100 MG CAPSULE PO (08:18)
[2025-02-13] MEDS: Lisinopril 20 MG TABLET 40 MG PO (08:19)
[2025-02-13] MEDS: SIMETHICONE 80 MG CHEW PO (09:16)
[2025-02-13] MEDS: hydroCHLOROthiazide 12.5 MG CAPSULE 25 MG PO (09:16)
--- NOTE | 2025-02-13 10:05 | ESPR_ITS ---
RE: ANDRESSA FRANKS : 1995 DATE OF SERVICE: 02/13/2025 SUBJECTIVE: Postop day #1, the patient denies any problem or complaint. She is voiding. She is ambulating. She is tolerating a regular diet. She is passing flatus. She denies any headache, change in vision, or right upper quadrant pain. OBJECTIVE: Vital Signs: Blood pressure 175/103, heart rate 73, respirations 18, temperature 98, pulse oximetry is 98% on room air. Lungs: Clear to auscultation bilaterally. Heart: Regular rate and rhythm. Abdomen: Mild gaseous distention. Dressing is dry and intact. Fundus is firm. Extremities: Nontender. LABORATORY DATA: Hemoglobin predelivery is 12.2, postdelivery is 14.2, creatinine is 1. Liver function tests normal. Corrected calcium 8.7. ASSESSMENT: Postop day #1, status post delivery complicated by chronic hypertension with superimposed preeclampsia with severe features and uncontrolled hypertension requiring multiple medications. PLAN: Remove dressing, saline lock, encourage ambulation, support, social service consult. Appreciate medicine recommendations regarding blood pressure control. Possible discharge home tomorrow. DT: 08:06:55 TT: 10:04:00 Ref: [id number] - TID: [id number] MTDD
[2025-02-13] MEDS: Milk Of Magnesia Susp 30 ML UDC PO (10:11)
--- NOTE | 2025-02-13 11:51 | PD.RESPRO ---
Documentation for date of: 02/13/25 Subjective Subjective Interval history: No acute overnight events noted. Seen and examined at bedside and patient endorses feeling pain and nausea with just water and some food. Otherwise denies headaches, blurry vision, spotty vision. Blood pressures overnight were 170s/100s on [id number] mg TID (increased to 20 TID), hydralazine PRN, HCTZ 25 mg, nifedipine 30 mg BID. Thus, given that patient has largely been refracotry to previously mentioned lisinopril 40 mg was added and hydralazine increased to 20 mg TID. Will continue to monitor and titrate antihypertensives as needed. Exam Vital Signs Temp Pulse Resp BP Pulse Ox O2 Del Method 98.5 F 91 18 178/108 H 97 Room Air 02/13/25 08:40 02/13/25 09:16 02/13/25 08:40 02/13/25 09:16 02/12/25 21:00 02/12/25 21:00 Narrative Exam General: AOx3, fatigued, no acute distress, able to speak full sentences HEENT: NC/AT, mucous membranes moist, bilateral sclera anicteric Cardiovascular: regular rate and rhythm, S1/S2 present, no murmurs appreciated Pulmonary: clear to auscultation bilaterally, no rales/rhonchi/wheezes Abdominal: soft, non-tender, non-distended, no rebound/guarding, normal bowel sounds present Musculoskeletal: normal ROM, no peripheral edema Skin: warm and dry, intact, no rashes Neuro: CN II-XII intact, no focal deficits Objective Labs 02/14/25 06:30 02/13/25 04:55 Labs: Laboratory Results - last 24 hr 02/12/25 02/13/25 00:46 04:55 WBC 17.8 H D RBC 5.05 Hgb 14.2 D Hct 41.4 MCV 82 MCH 28.1 MCHC 34.3 RDW Std Deviation 45.8 Plt Count 246 D Neut % (Auto) 87 H Lymph % (Auto) 9 L Gregg % (Auto) 3 Eos % (Auto) 0 Baso % (Auto) 0 Neut # (Auto) 15.5 H Lymph # (Auto) 1.6 Gregg # (Auto) 0.5 Eos # (Auto) 0.0 Baso # (Auto) 0.0 Immature Gran # (Auto) 0.15 H Absolute Nucleated RBC 0.00 Immature Gran % 1 H Nucleated RBC % 0 Sodium 137 Potassium 4.4 Chloride 108 H Carbon Dioxide 18.0 L Anion Gap 11 BUN 18 Creatinine 1.0 Estim Creat Clear Calc 98.6 eGFR > 60 BUN/Creatinine Ratio 18 Glucose 124 H Calculated Osmolality 276 Calcium 7.3 L Corrected Calcium 8.7 Phosphorus 4.3 Magnesium 1.7 Total Bilirubin 0.2 L AST 33 ALT 12 Alkaline Phosphatase 150 H Total Protein 4.3 L Albumin 2.3 L Globulin 2.0 L Albumin/Globulin Ratio 1.2 T.pallidum Ab (A) See Sep Rpt Quality Measures Quality Measures VTE prophylaxis Assessment & Plan Assessment Current Active Medications: Generic Name Dose Route Start Last Admin Trade Name Freq PRN Reason Stop Dose Admin Diphtheria/Tetanus/Acell Pertussis 0.5 ml 02/12/25 04:16 Diphth,Pertuss(Acell),Tet Vac 0.5 Ml Syr- Adult IMi X1 PRN SEE COMMENTS Docusate Sodium 100 mg 02/12/25 09:00 02/13/25 08:18 Docusate Sod 100 Mg Capsule PO 03/14/25 08:59 100 mg QDAY BONNIE Administration Hydralazine HCl 10 mg 02/12/25 16:56 Hydralazine Inj 20 Mg/Ml Vial IVP 03/14/25 16:55 Q6HR PRN For SBP > 180 Hydralazine HCl 20 mg 02/13/25 14:00 Hydralazine Hcl 10 Mg Tablet PO 03/15/25 13:59 TID BONNIE Hydrochlorothiazide 25 mg 02/12/25 10:45 02/13/25 09:16 Hydrochlorothiazide 12.5 Mg Capsule PO 03/14/25 10:44 25 mg QDAY BONNIE Administration Hydromorphone HCl 2 mg 02/12/25 12:10 02/13/25 05:42 Hydromorphone Hcl 2 Mg Tablet PO 02/17/25 12:09 2 mg Q4HR PRN Administration PAIN SCALE 4-10(Mod-Sev Ibuprofen 800 mg 02/12/25 00:41 Ibuprofen Tab 400 Mg Tablet PO X1 PRN uterine cramping Lisinopril 40 mg 02/13/25 07:50 02/13/25 08:19 Lisinopril 20 Mg Tablet PO 03/15/25 07:49 40 mg QDAY BONNIE Administration Magnesium Hydroxide 30 ml 02/12/25 04:16 02/13/25 10:11 Milk Of Magnesia Susp 30 Ml Udc PO 03/14/25 04:15 30 ml [id number] PRN Administration CONSTIPATION Measles/Mumps/Rubella Vaccine Live 0.5 ml 02/12/25 04:16 Measles, Mumps & Rubella Vacc 0.5 Ml Vial SCi X1 PRN if non-immune or equivocal Nifedipine 30 mg 02/12/25 04:25 02/13/25 08:18 Nifedipine Xl 30 Mg Tabcr PO 03/14/25 04:24 30 mg BID BONNIE Administration Ondansetron HCl 4 mg 02/12/25 05:23 02/12/25 11:02 Ondansetron Inj 2 Mg/Ml Inj 2 Ml IVP 03/14/25 05:22 4 mg Q4HR PRN Administration NAUSEA OR VOMITING Protocol Simethicone 80 mg 02/12/25 04:16 02/13/25 09:16 Simethicone 80 Mg Chew PO 03/14/25 04:15 80 mg Q4HR PRN Administration GAS Plan Jessie Stanton is a 30-year-old female with history of amphetamine use and gestational hypertension for which internal medicine was consulted for management of hypertension in setting of preeclampsia. #Hypertensive emergency #Preeclampsia #Acute kidney injury Initially presented with BP of 200s/120s with associated spotty vision but denied headaches, epistaxis, abdominal pain. CBC unremarkable, CHEM panel showed creatinine of 1.3 and patient's baseline appears to be around 0.8, BNP mildly elevated and urine random protein of 1000. Patient had already received labetalol, hydralazine, nifedipine, and hydrochlorothiazide for which blood pressure continues to remain elevated in 170s/100s. Patient states that she does not plan to breast-feed and so can consider other agents if BP continues to be difficult to manage. ? Hydralazine 20 mg p.o. 3 times daily ? Hydralazine 10 mg p.o. prn q6h ? Hydrochlorothiazide 25 mg p.o. daily ? Nifedipine 40 mg p.o. twice daily ? Lisinopril 40 mg daily ? Given that patient has been refractory to above medications, can consider nicardipine infusion 5 mg/h IV and titrate by 0.5 to 1 mg/h at 15-minute intervals to achieve target BP; maximum dose: 15 mg/hour ----- Plan discussed with attending physician Dr. Mercedes Pina MD PGY-1 Internal Medicine Attending Provider Attestation/Addendum I have examined the patient, reviewed labs and imaging findings, discussed the case with the resident(s), and reviewed entered orders. I agree with the plan of care as outlined in this note, with these additional summaries/recommendations: Patient is a 30-year-old female with medical history of polysubstance abuse, obesity, and multiple pregnancies with little to no care presented to [facility] emergency department on 02/12/2025 with chief complaint of ruptured membranes. Patient seen at bedside. No acute overnight events. 2D echo returned revealing normal left ventricular size and function with EF 55%. HF ruled out. Patient continues to have resistant hypertension which is most likely multi-factorial to primary hypertension plus preeclampsia plus methamphetamine use/withdrawal. Low suspicion for secondary cause of hypertension at this time. Patient will need continued outpatient monitoring to confirm diagnosis of primary hypertension. Today we will add Lisinopril 40mg PO QD to regimen & increase hydralazine to 25mg PO QID. Continue Hctz 25 mg PO QD, Nifedipine 30mg PO TID and as need IV hydralazine for SBP >180. BP goal at this time is SBP in 150s and DBP in 90s with further titration outpatient. No need for nicardipine gtt at this time but will continue to monitor. Patient also noted to be syphilis positive. RPR 1:16. Unclear if patient has received treatment but will discuss with OBGYN about initiating pencillin G benzathine 2.4 million units IM once versus X 3 weeks. Patient updated on the plan and in agreement. All questions answered to satisfaction. Please see residents note for additional details of management. Thank you for allowing us to participate in this patient's care. We will continue to follow the patient with you. Dr. Mercedes MD
[2025-02-13] MEDS: hydrALAZINE HCL 10 MG TABLET 20 MG PO (13:22)
--- NOTE | 2025-02-13 15:13 | PC.SS ---
SS met with patient Jessie Stanton at bedside. SS made introductions as well as discussed roles and reasons for visit for geriatric social work professor consult for no care and testing positive for methamphetamine at time of delivery. SS verified address and phone number on face sheet, . Pt resides at home with her mother, Alise Guadalupe who she reports is surrogate decision maker [phone]. Patient states she has been at her mothers approximately for 2 months, however prior to that she was homeless for 3 years. Pt is connected [employer] and [employer]. Patient is not employed and has support from her mother, Tatiana. Pt stated father of the baby is . As for care, pt stated she found out she was when she was 6-7 months and reported she followed up [facility] and stated they were not taking any new patients for OB services at that time. Pt denied any past or present issues with depression or depression however aware of the signs and symptoms and how to reach out to PCP if needed.? Pt stated she was prepared for newborns arrival and have all necessary care supplies along with car seat. SS inquired about CWS Hx, patient reports she does have history with CWS and has had two other children removed by CWS, who have been adopted by her father and does not have any contact with them. SS informed pt that a new CWS referral was made for this current for the same reason as both of them tested positive for methamphetamine, patient verbalized understanding. Patient stated she would use Meth once a week and has been reducing her use. Patient reported she does not plan to continue using Meth anymore. Patient denies that there is substance use in the home. Per patient she was notified by [facility] social services directorShani that if appropriate living arrangements have been made and sober intensive care ambulance paramedic, she is able to discharge home with infant and maternal grand mother Tatiana. SS provided community resources flyers to [facility]. SS to follow up with [facility] Child welfare services, social services directorShani in regards to infants disposition plan [phone]. Bedside RN, Leena jacob.
[2025-02-13] MEDS: HYDROCORTISONE ACET CR 2.5% 30 GM TUBE PR (17:15)
[2025-02-13] MEDS: LABETALOL INJ 5 MG/ML VIAL 20 ML 10 MG IVP (17:15)
[2025-02-13] MEDS: niCARdipine 20 MG CAPSULE PO (18:50)
[2025-02-14 04:02] VITALS: BP 147/93; PULSE 86; RESP 18; TEMP 36.7; O2SAT 98
[2025-02-14] MEDS: HYDROMORPHONE HCL 2 MG TABLET PO ×2 (04:19→08:57)
[2025-02-14] MEDS: HYDROCORTISONE ACET CR 2.5% 30 GM TUBE PR (04:20)
[2025-02-14 07:21] LABS: Basophils % (Auto) 0 % (0-2.5); Eosinophils % (Auto) 0 % (0-10); Hematocrit 41.6 % (36.0-46.0); Immature Granulocytes % (Auto) 1 % (0-0); Immature Granulocytes Auto 0.11 Thou/mm3 (0.00-0.00); Lymphocytes # (Auto) 1.5 Thou/mm3 (1.0-4.8); Lymphocytes % (Auto) 9 % (10-50); Mean Corpuscular HGB Conc 33.7 g/dl (31.0-37.0); Mean Corpuscular Hemoglobin 27.8 pg (25.0-35.0); Mean Corpuscular Volume 83 fL (80-100); Monocytes # (Auto) 0.6 Thou/mm3 (0.0-0.8); Monocytes % (Auto) 4 % (0-12); Neutrophils # (Auto) 13.6 Thou/mm3 (1.8-7.7); Neutrophils % (Auto) 86 % (37-80); Nucleated Red Blood Cell % 0 /100 WBC (0); Platelet Count 280 Thou/mm3 (140-440); RDW Standard Deviation 47.5 fL (36.4-46.3); Red Blood Count 5.03 Miln/mm3 (4.00-5.20); White Blood Count 15.9 Thou/mm3 (3.6-11.0)
--- NOTE | 2025-02-14 07:21 | ESPR_ITS ---
RE: ANDRESSA FRANKS : 1995 DATE OF SERVICE: 02/14/2025 SUBJECTIVE: Postoperative day #2, the patient denies any problem or complaints. She is voiding. She is ambulating. She is tolerating diet. She is passing flatus. She denies any excessive vaginal bleeding. She denies any dizziness or lightheadedness. She denies any chest pain, palpitations, shortness of breath, or lower extremity pain or swelling. OBJECTIVE: Vital Signs: Blood pressure 127/80, heart rate 94, respirations 18, temperature 98.6. Lungs: Clear to auscultation bilaterally. Heart: Regular rate and rhythm. Abdomen: Nondistended. Incision is clear and intact. Fundus is firm. Extremities: Nontender. LABORATORY DATA: Hemoglobin free delivery is 12.2, post delivery is 14.2. ASSESSMENT: Postoperative day #2, status post delivery complicated by chronic hypertension with superimposed preeclampsia with severe features. Blood pressure is still high on Nicardipine 20mg po BID, Lisinopril 40 mg po daily and Labetalol 100mg po BID. Syphillis with RPR titer 1:16 and no prior RPR within 1 year. PLAN:Increase Labetalol to 300mg po BID and continue Nicardipine and Lisinopril and follow up with Dr Cummings next week. Bicillin 2.4 mu IM for first dose. Follow up at [facility] weekly for follow up Bicillin 2.4 mu IM for 2nd and 3rd dosing. Possible discharge home later today. Discharge instructions were given. Follow up 1 week. DT: 05::25 TT: 07:19:00 Ref: [id number] - TID: [id number] MTDD
[2025-02-14 07:58] LABS: Alanine Aminotransferase 9 U/L (10-49); Albumin, Serum 2.6 gm/dL (3.5-5.0); Albumin/Globulin Ratio 1.1 (1.2-2.2); Alkaline Phosphatase 124 U/L (46-116); Anion Gap 10 (7-16); Aspartate Amino Transferase 21 U/L (0-34); BUN/Creatinine Ratio 15 Ratio (12-20); Bilirubin,Total 0.2 mg/dL (0.3-1.2); Blood Urea Nitrogen 15 mg/dL (9-23); Calcium 7.1 mg/dL (8.3-10.6); Calcium (Corrected) 8.2 mg/dL (8.5-10.1); Chloride 104 mMol/L (98-107); Estimated Creatinine Clearance 98.6 mL/min (>60); Globulin 2.3 gm/dL (2.3-3.5); Glucose 92 mg/dL (74-106); Magnesium 2.1 mg/dL (1.6-2.6); Osmolality,Calculated 270 (275-295); Phosphorous 4.2 mg/dL (2.4-5.1); Sodium 135 mMol/L (136-145); Total Protein 4.9 gm/dL (5.7-8.2); eGFR > 60 See Note
[2025-02-14 08:56] VITALS: BP 151/100; PULSE 92
[2025-02-14] MEDS: LABETALOL 100 MG TABLET PO (08:56)
[2025-02-14 08:57] VITALS: BP 151/100; PULSE 92
[2025-02-14] MEDS: DOCUSATE SOD 100 MG CAPSULE PO (08:57)
[2025-02-14] MEDS: Lisinopril 20 MG TABLET 40 MG PO (08:57)
[2025-02-14 08:58] VITALS: BP 151/100; PULSE 91
[2025-02-14] MEDS: niCARdipine 20 MG CAPSULE PO (08:58)
[2025-02-14 09:00] VITALS: BP 151/100; BP 152/87; PULSE 91; RESP 17; TEMP 36.5; O2SAT 96
[2025-02-14] MEDS: DIPHTH,PERTUSS(ACELL),TET VAC 0.5 ML SYR- ADULT IMi (09:01)
--- NOTE | 2025-02-14 09:09 | ESCONSULT_ITS ---
History of Present Illness Data of Consult Consult date: 02/14/25 Requesting Physician: Abdulkadir Puente MD Primary Care Provider: Physician No Primary/Family Consult Narrative Reason for consult: Preeclampsia, uncontrolled hypertension History of present illness: Ms. Jessie Stanton is a 30-year-old female with history of amphetamine use and gestational hypertension vs Chronic hypertension during presented on 2024 reporting leaking Amniotic fluidmembranes. Noted to have blood pressures in 200s/120s on admission with associated spotty vision but no blurry vision, headaches, epistaxis, abdominal pain. Noted to be methamphetamine positive on urine tox screen and states that her last use was 1 week prior to admission. Ultrasound in ER confirmed 39-week with little to no care and patient was taken to OR for section. 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 Patient also tested positive for syphilis and benzathine penicillin was ordered. Internal medicine consulted for management of significantly elevated blood pressures in setting of preeclampsia.Medicine team ordered a nephrology consultation for proteinuria, uncontrolled hypertension, preeclampsia. Patient currently seen in medical floor. Mom at bedside. Patient apparently has 8 pregnancies and this is the eighth . She recalled having hypertension for most of her pregnancies. Last night we started her on labetalol, lisinopril, nicardipine. Blood pressure currently seems to be still elevated although better than yesterday. Sodium 135, potassium 4, creatinine 1.0, uric acid 5.9, LFTs normal, albumin 2.6, urinalysis shows significant proteinuria, glucosuria. Urine protein/creatinine 10 g. Toxicology positive for meth amphetamine syphilis was positive. Echocardiogram showed ejection fraction 55%. Chest x-ray negative cc:: cc: Abdulkadir Puente MD Review of Systems Review of Systems Narrative Review of Systems: CONSTITUTIONAL: Patient denies any fever, chills. Dental problems HEENT: Denies any visual disturbances or hearing problems. CARDIOVASCULAR: Patient denies any chest pain, shortness of breath, swelling in the lower extremities. PULMONARY: Patient denies any shortness of breath, cough. GASTROINTESTINAL: Patient denies any abdominal pain, constipation, nausea, vomiting, diarrhea. GENITOURINARY: Patient denies any urinary symptoms of burning or frequency or hematuria, denies any form in the urine. SKIN: Denies any rash. MUSCULOSKELETAL: Denies any muscular skeletal problems of joint pains. NEUROLOGICAL: Denies any neurological problems of strokes, seizures or confusion. Denies any memory problems. PSYCHIATRIC: Denies any depression or anxiety. LYMPHATICS : No lymphadenopathy Past Medical History Past Medical History NEUROLOGIC: Negative Neurological Disorders, Cerebrovascular Accident, Transient Ischemic Attacks (TIA), Dementia, Alzheimer's Disease, Parkinson's Disease, Brain Tumor, Meningitis, Seizures, Epilepsy, Multiple Sclerosis, Cerebral Palsy, Amyotrophic Lateral Sclerosis (ALS/Ayleen Gehrig's), Guillain-[place] Syndrome, Spina Bifida, Paralysis, Peripheral Neuropathy, Montez's Palsy, Subdural Hematoma, Migraine, Head Trauma, Spinal Cord Injury or Traumatic Brain Injury CARDIAC: Positive Cardiac Disorders and Hypertension; Negative Congestive Heart Failure RESPIRATORY: Negative Respiratory Disorders, Chronic Obstructive Pulmonary Disease (COPD), Asthma, Bronchitis, Emphysema, Pneumonia, Pulmonary Fibrosis, Cystic Fibrosis, Tuberculosis, Pulmonary Embolism, Pulmonary Edema or Sleep Apnea GASTROINTESTINAL: Positive Gastrointestinal Disorders and Obesity; Negative Hepatitis, Cirrhosis, Pancreatitis, Celiac Disease, Gall Bladder Disease, Gastrointestinal Bleed, Esophageal Varices, Castaneda's Esophagus, Colitis, Ulcerative Colitis, Diverticulitis, Diverticulosis, Ulcer, Colorectal Cancer, Irritable Bowel, Crohn's Disease, Obstructive Bowel, Hiatal Hernia, Hemorrhoids, Gastroesophageal Reflux Disease or Polyps GENITOURINARY: Positive Genitourinary Disorders; Negative Renal Disease REPRODUCTIVE: Positive Previous Pregnancies and Syphilis; Negative Breast Cancer, Endometriosis, Genital Herpes, Gonorrhea, Pelvic Inflammatory Disease or Uterine Prolapse MUSCULOSKELETAL: Negative Musculoskeletal Disorders, Muscular Dystrophy, Myasthenia Gravis, Marfan's Syndrome, Bone Cancer, Arthritis, Rheumatoid Arthritis, Osteoporosis, Degenerative Disk Disease, Gout, Scoliosis, Carpal Tunnel Syndrome, Fibromyalgia, Fractures, Degenerative Joint Disease, Osteomyelitis or Poliovirus ENT: Negative History of ENT Problems, Cataracts, Glaucoma, Blind, Retinal Detachment, Macular Degeneration, Ear Infection, Deafness, Head Trauma or Eye Prosthesis ENDOCRINE: Positive Endocrine Disorders and Diabetes Mellitus Type 2; Negative Diabetes Mellitus Type 1 HEMATOLOGIC: Negative Blood Disorders, Anemia, Hemophilia, Thalassemia, Sickle Cell Disease or Clotting Problems PSYCHO/SOCIAL: Positive Depression and Anxiety; Negative Psychiatric Problems, Schizophrenia, Behavior Problems, Self- Mutilation, Attention Deficit Disorder, Attention Deficit Hyperactivity Disorder, Depression, Post Traumatic Stress Disorder or Eating Disorder OTHER HISTORY: Negative Hospitalization, Autoimmune Disease, Down Syndrome, Autism, Developmental Delay, Shingles, Falls, Blood Transfusions, Blood Transfusion Reaction, Anesthesia Reactions, Organ Transplant, Chemotherapy, Radiation Therapy, Hyperbaric Therapy, MRSA, VRSA, Vancomycin-Resistant Enterococci, Human Immunodeficiency Virus (HIV), Chicken Pox, Measles, Mumps, Rubella (Indonesian Measles), Pertussis, Clostridium Difficile, Cancer, Breast Cancer, Cervical Cancer, Colorectal Cancer, Lung Cancer or Ovarian Cancer Family History FAMILY HISTORY: Positive Family Cardiac Disorders; Negative Family Psychiatric Problems, Family Respiratory Disorders, Family Gastrointestinal Problems, Family Cancer, Family Surgery or Family Anesthesia Reaction Surgical History SURGICAL: Negative Cardiac Surgery, Open Heart Surgery, Coronary Artery Bypass Graft, Valve Replacement, Vascular Surgery, Coronary Stent, Cardiac Catheterization, Pacemaker, Angiogram, Auto Implanted Cardiovert Defib, Carotid Endarterectomy, Endocrine Surgery, Thyroidectomy, Ear Surgery, Tympanostomy Tube, Eye Surgery, Nose Surgery, Oral Surgery, Tonsillectomy, Adenoidectomy, Cochlear Implant, Corneal Transplant, Throat Surgery, Abdominal Surgery, Tracheostomy, Gastric Bypass Surgery, Gastrostomy, Bowel Surgery, Nephrectomy, Bladder Sling, Ureteral Stent, Joint Replacement, of Shoulder Sx, Amputation, Knee Sx, Hip Sx, Open Reduction Internal Fixation, Arthroscopy, of Back Surgery, Neurologic Surgery, Brain Shunt, Lumpectomy, Hysterectomy, Tubal Ligation, Section, Organ Transplant or ESWL Social History SMOKING STATUS: Never smoker SECOND HAND EXPOSURE: No Meds Home Medications and Allergies Allergies Allergy/AdvReac Type Severity Reaction Status Date / Time No Known Allergies Allergy Verified 02/12/25 00:48 Exam Vital Signs Temp Pulse Resp BP Pulse Ox O2 Del Method 36.7 C 80 16 123/79 96 Room Air 02/14/25 12:48 02/14/25 12:48 02/14/25 12:48 02/14/25 12:48 02/14/25 12:48 02/14/25 12:48 Narrative Exam GENERAL APPEARANCE: Patient seems to be comfortable, adequately hydrated and nourished. HEENT: EOMI, PERRLA. Patient has poor dentition NECK: Neck supple, no JVD or bruit CARDIOVASCULAR: Heart regular, no murmurs LUNGS/CHEST: Chest clear to auscultation. No rales, rhonchi, wheezing ABDOMEN: Soft, nontender, nondistended. No masses. Normal bowel sounds. Status post EXTREMITIES: No edema, clubbing or cyanosis. SKIN: Skin exam normal without any rashes MUSCULOSKELETAL: Musculoskeletal exam normal PSYCHIATRIC: Normal mood, affect LYMPHATICS: No lymphadenopathy noted NEUROLOGICAL : No neurological deficits Results Labs 02/14/25 06:30 02/14/25 06:30 Labs: Short CBC 02/14/25 Range/Units 06:30 WBC 15.9 H (3.6-11.0) Thou/mm3 Hgb 14.0 (12.0-16.0) g/dL Hct 41.6 (36.0-46.0) % Plt Count 280 D (140-440) Thou/mm3 BMP 02/14/25 06:30 Sodium 135 L Potassium 4.0 Chloride 104 Carbon Dioxide 21.0 BUN 15 Creatinine 1.0 Glucose 92 Calcium 7.1 L Liver Function 02/14/25 Range/Units 06:30 Total Bilirubin 0.2 L (0.3-1.2) mg/dL AST 21 (0-34) U/L ALT 9 L (10-49) U/L Alkaline Phosphatase 124 H D (46-116) U/L Albumin 2.6 L (3.5-5.0) gm/dL Assessment & Plan Assessment and plan (1) Uncontrolled hypertension: Status: Acute Assessment and plan: Patient has uncontrolled hypertension complicated with preeclampsia needing emergency . Currently on labetalol, nicardipine, lisinopril. Not breast-feeding. Suggested to follow-up with me in my office if she is going to get discharged. Noted significant proteinuria which will be repeated in 1 to 2 weeks once hypertension improves. Had a long conversation with patient regarding abstinence of drugs. She might also tubal ligation if she is not planning to have more kids due to risk of preeclampsia/eclampsia. Patient wants to consider that in the outpatient setting. Care discussed with mother. (2) Severe preeclampsia: Status: Acute (3) Previous section complicating : Status: Acute (4) Morbid obesity: Status: Acute (5) Methamphetamine abuse: Status: Acute (6) No care in current : Status: Acute (7) Type 2 diabetes mellitus affecting in third trimester, antepartum: Status: Acute (8) Syphilis complicating childbirth: Status: Acute Additional Assessment & Plan Additional Plan: Thank you Parviz for allowing me to participate in the care of Ms. Stanton (2) Severe preeclampsia Qualifiers: Trimester: third trimester Qualified Code(s): O14.13 - Severe pre-eclampsia, third trimester (6) No care in current Qualifiers: Trimester: third trimester Qualified Code(s): O09.33 - Supervision of with insufficient care, third trimester
[2025-02-14] MEDS: CALCIUM CARBONATE 600 MG TABLET PO (10:21)
--- NOTE | 2025-02-14 10:25 | ESPR_ITS ---
Documentation for date of: 02/14/25 Subjective Subjective Interval history: No acute overnight events reported. Seen and examined at bedside and patient states that her nausea, vomiting, and pain have improved compared to prior. Given the patient was not responding to first-line therapy regimen, nephrology was consulted and recommended to continue with labetalol, lisinopril, and nicardipine which has improved patient's blood pressure. Recommend to continue with current management and will continue to follow. Exam Vital Signs Temp Pulse Resp BP Pulse Ox O2 Del Method 98.0 F 91 18 151/100 H 98 Room Air 02/14/25 04:02 02/14/25 08:58 02/14/25 04:02 02/14/25 08:58 02/14/25 04:02 02/14/25 04:02 Narrative Exam General: AOx3, fatigued, no acute distress, able to speak full sentences HEENT: NC/AT, mucous membranes moist, bilateral sclera anicteric Cardiovascular: regular rate and rhythm, S1/S2 present, no murmurs appreciated Pulmonary: clear to auscultation bilaterally, no rales/rhonchi/wheezes Abdominal: soft, non-tender, non-distended, no rebound/guarding, normal bowel sounds present Musculoskeletal: normal ROM, no peripheral edema Skin: warm and dry, intact, no rashes Neuro: CN II-XII intact, no focal deficits Objective Labs 02/14/25 06:30 02/14/25 06:30 Labs: Laboratory Results - last 24 hr 02/14/25 06:30 WBC 15.9 H RBC 5.03 Hgb 14.0 Hct 41.6 MCV 83 MCH 27.8 MCHC 33.7 RDW Std Deviation 47.5 H Plt Count 280 D Neut % (Auto) 86 H Lymph % (Auto) 9 L [place] % (Auto) 4 Eos % (Auto) 0 Baso % (Auto) 0 Neut # (Auto) 13.6 H Lymph # (Auto) 1.5 [place] # (Auto) 0.6 Eos # (Auto) 0.0 Baso # (Auto) 0.0 Immature Gran # (Auto) 0.11 H Absolute Nucleated RBC 0.00 Immature Gran % 1 H Nucleated RBC % 0 Sodium 135 L Potassium 4.0 Chloride 104 Carbon Dioxide 21.0 Anion Gap 10 BUN 15 Creatinine 1.0 Estim Creat Clear Calc 98.6 eGFR > 60 BUN/Creatinine Ratio 15 Glucose 92 Calculated Osmolality 270 L Calcium 7.1 L Corrected Calcium 8.2 L Phosphorus 4.2 Magnesium 2.1 Total Bilirubin 0.2 L AST 21 ALT 9 L Alkaline Phosphatase 124 H D Total Protein 4.9 L Albumin 2.6 L Globulin 2.3 Albumin/Globulin Ratio 1.1 L Quality Measures Quality Measures VTE prophylaxis Assessment & Plan Assessment Current Active Medications: Generic Name Dose Route Start Last Admin Trade Name Freq PRN Reason Stop Dose Admin Docusate Sodium 100 mg 02/12/25 09:00 02/14/25 08:57 Docusate Sod 100 Mg Capsule PO 03/14/25 08:59 100 mg QDAY BONNIE Administration Hydrocortisone 0 gm 02/13/25 16:54 02/14/25 04:20 Hydrocortisone Acet Cr 2.5% 30 Gm Tube CA 03/15/25 16:53 1 applicatio BID PRN Administration HEMORRHOIDS Hydromorphone HCl 2 mg 02/12/25 12:10 02/14/25 08:57 Hydromorphone Hcl 2 Mg Tablet PO 02/17/25 12:09 2 mg Q4HR PRN Administration PAIN SCALE 4-10(Mod-Sev Magnesium Sulfate 2 gm in 50 mls @ 25 mls/hr 02/14/25 09:53 Magnesium Sulfate Ivpb IV 02/14/25 11:52 X1 ONE Ibuprofen 800 mg 02/12/25 00:41 Ibuprofen Tab 400 Mg Tablet PO X1 PRN uterine cramping Labetalol HCl 100 mg 02/13/25 17:35 02/14/25 08:56 Labetalol 100 Mg Tablet PO 03/15/25 17:34 100 mg BID BONNIE Administration Labetalol HCl 10 mg 02/13/25 17:59 Labetalol Inj 5 Mg/Ml Vial 20 Ml IVP 03/15/25 17:14 Q6H PRN hypertension Lisinopril 40 mg 02/13/25 07:50 02/14/25 08:57 Lisinopril 20 Mg Tablet PO 03/15/25 07:49 40 mg QDAY BONNIE Administration Magnesium Hydroxide 30 ml 02/12/25 04:16 02/13/25 10:11 Milk Of Magnesia Susp 30 Ml Udc PO 03/14/25 04:15 30 ml [id number] PRN Administration CONSTIPATION Measles/Mumps/Rubella Vaccine Live 0.5 ml 02/12/25 04:16 Measles, Mumps & Rubella Vacc 0.5 Ml Vial SCi X1 PRN if non-immune or equivocal Nicardipine HCl 20 mg 02/14/25 10:00 Nicardipine 20 Mg Capsule PO 03/16/25 09:59 TID BONNIE Ondansetron HCl 4 mg 02/12/25 05:23 02/12/25 11:02 Ondansetron Inj 2 Mg/Ml Inj 2 Ml IVP 03/14/25 05:22 4 mg Q4HR PRN Administration NAUSEA OR VOMITING Protocol Simethicone 80 mg 02/12/25 04:16 02/13/25 09:16 Simethicone 80 Mg Chew PO 03/14/25 04:15 80 mg Q4HR PRN Administration GAS Plan Jessie Stanton is a 30-year-old female with history of amphetamine use and gestational hypertension for which internal medicine was consulted for management of hypertension in setting of preeclampsia. #Hypertensive emergency #Preeclampsia #Methamphetamine use #Acute kidney injury Initially presented with BP of 200s/120s with associated spotty vision but denied headaches, epistaxis, abdominal pain. CBC unremarkable, CHEM panel showed creatinine of 1.3 and patient's baseline appears to be around 0.8, BNP mildly elevated and urine random protein of 1000. Patient had already received labetalol, hydralazine, nifedipine, and hydrochlorothiazide for which blood pressure continues to remain elevated in 170s/100s. Patient states that she does not plan to breast-feed and so can consider other agents if BP continues to be difficult to manage. ? Labetalol 10 mg IV every 6 hours as needed ? Labetalol 100 mg p.o. twice daily ? Lisinopril 40 mg p.o. daily ? Nicardipine 20 mg p.o. 3 times daily ----- Plan discussed with attending physician Dr. Mercedes Pina MD PGY-1 Internal Medicine Attending Provider Attestation/Addendum I have examined the patient, reviewed labs and imaging findings, discussed the case with the resident(s), and reviewed entered orders. I agree with the plan of care as outlined in this note, with these additional summaries/recommendations: Patient is a 30-year-old female with medical history of polysubstance abuse, obesity, and multiple pregnancies with little to no care presented to [facility] emergency department on 02/12/2025 with chief complaint of ruptured membranes. Patient seen at bedside. No acute overnight events. Patients blood pressure has significantly improved. SBP now trending in 150s. Continue labetaolol, Lisinopril 40mg PO QD, and nicardipine 20mg PO TID. Nephrology consulted for uncontrolled HTN and proteinuria. Patient received pencillin G benzathine 2.4 million units IM X 1 today for syphilis and will f/u outpatient with OBGYN for additional shots. Patient will need close outpatient follow-up with neprhology once medically cleared for discharge for further titration of antihypertensive regimen. Patient updated on the plan and in agreement. All questions answered to satisfaction. Please see residents note for additional details and management. Dr. Mercedes MD
--- NOTE | 2025-02-14 11:06 | ESPR_ITS ---
Subjective Subjective Interval history: Notified prior to patient's discharge that her RPR was reactive at 1:16. No prior RPR within one year to compare too. Patient says she gets her care at [facility] but had no care in [facility] . Exam Vital Signs Temp Pulse Resp BP Pulse Ox O2 Del Method 97.7 F 91 17 152/87 H 96 Room Air 02/14/25 09:00 02/14/25 09:00 02/14/25 09:00 02/14/25 09:00 02/14/25 09:00 02/14/25 09:00 Objective Labs 02/14/25 06:30 02/14/25 06:30 Labs: Laboratory Results - last 24 hr 02/14/25 06:30 WBC 15.9 H RBC 5.03 Hgb 14.0 Hct 41.6 MCV 83 MCH 27.8 MCHC 33.7 RDW Std Deviation 47.5 H Plt Count 280 D Neut % (Auto) 86 H Lymph % (Auto) 9 L [place] % (Auto) 4 Eos % (Auto) 0 Baso % (Auto) 0 Neut # (Auto) 13.6 H Lymph # (Auto) 1.5 [place] # (Auto) 0.6 Eos # (Auto) 0.0 Baso # (Auto) 0.0 Immature Gran # (Auto) 0.11 H Absolute Nucleated RBC 0.00 Immature Gran % 1 H Nucleated RBC % 0 Sodium 135 L Potassium 4.0 Chloride 104 Carbon Dioxide 21.0 Anion Gap 10 BUN 15 Creatinine 1.0 Estim Creat Clear Calc 98.6 eGFR > 60 BUN/Creatinine Ratio 15 Glucose 92 Calculated Osmolality 270 L Calcium 7.1 L Corrected Calcium 8.2 L Phosphorus 4.2 Magnesium 2.1 Total Bilirubin 0.2 L AST 21 ALT 9 L Alkaline Phosphatase 124 H D Total Protein 4.9 L Albumin 2.6 L Globulin 2.3 Albumin/Globulin Ratio 1.1 L Assessment & Plan Problem List (1) Uncontrolled hypertension: Status: Acute (2) Severe preeclampsia: Status: Acute (3) Previous section complicating : Status: Acute (4) Morbid obesity: Status: Acute (5) Methamphetamine abuse: Status: Acute (6) No care in current : Status: Acute (7) Supervision of high risk in third trimester: Status: Acute (8) Homeless: Status: Acute (9) Type 2 diabetes mellitus affecting in third trimester, antepartum: Status: Acute (10) Syphilis complicating childbirth: Status: Acute Assessment and plan: Bicillin 2.4 mu IM today Pt will go to see Dr Almaguer at [facility] on at 1 pm on Sunday for 2nd Bicillin 2.4 mu IM. (Dr Almaguer has agreed to see her at that time as a walk in ). Time Spent With Patient Time: Total time spent is greater than 50% in coordination of care (as documented) at patient's floor/unit and/or counseling patient:
[2025-02-14] MEDS: Magnesium Sulfate 2 GM Ivpb 2 GM/50 ML BAG IV (11:19)
[2025-02-14] MEDS: PEN G BENZ (Bicillin LA) 2.4 MMU/4 ML SYRG IM (11:23)
[2025-02-14 12:48] VITALS: BP 123/79; PULSE 80; RESP 16; TEMP 36.7; O2SAT 96
== END 2025-02-14 14:05 | disposition home or self-care (01) | DRG 540 ==
LOC: S4SX 02:57 → S4NX 03:08
PROVIDERS: Obstetrics & Gynecology; Admitting Provider Obstetrics & Gynecology; Visit Provider Pediatrics
PROC: 10D00Z1 Extraction of Products of Conception, Low, Open Approach (ICD-10-PCS; CPT 59514; principal; 2025-02-12 02:00)
DX: O34.211 Maternal care for low transverse scar from previous cesarean delivery (principal); O14.14 Severe pre-eclampsia complicating childbirth; O24.429 Gestational diabetes mellitus in childbirth, unspecified control; O99.214 Obesity complicating childbirth; Z37.0 Single live birth; Z3A.39 39 weeks gestation of pregnancy; E66.01 Morbid (severe) obesity due to excess calories; O99.324 Drug use complicating childbirth; F15.10 Other stimulant abuse, uncomplicated; O32.8XX0 Maternal care for other malpresentation of fetus, not applicable or unspecified; O34.03 Maternal care for unspecified congenital malformation of uterus, third trimester; Q51.3 Bicornate uterus; A53.9 Syphilis, unspecified; O98.12 Syphilis complicating childbirth; Z59.00 Homelessness unspecified; I16.1 Hypertensive emergency; I1A.0 Resistant hypertension; Z79.899 Other long term (current) drug therapy
CPT/HCPCS: 36415; 59409; 71045; 76805; 80053; 80307; 81001; 82570; 82803; 83735; 83880; 84100; 84112; 84156; 84550; 85025; 85384; 85610; 85730; 86703; 86762; 86780; 86850; 86900; 86901; 87340; 90715; 93306; 94762; A4314; A4649; J0131; J0360; J0561; J0689; J1885; J2274; J2371; J2405; J2590; J2765; J3010; J3475; J3490; A9270; J1920; J2270

== ENCOUNTER 2025-06-24 05:03 | Emergency (ER) | payer MEDICAID, SELFPAY ==
[2025-06-24] VITALS (14 sets, daily range): BP systolic 135–233; BP diastolic 81–141; PULSE 62–82; RESP 14–23; TEMP 36.4–37; O2SAT 96–100; BMI 36.4
--- NOTE | 2025-06-24 05:59 | PC.NURSE ---
DR ESPINOSA MADE AWARE OF PTS CONSISTENT HIGH BLOOD PRESSURES
--- NOTE | 2025-06-24 06:08 | EKG_ITS ---
[facility] Test Date: 2025-06-24 Pat Name: ANDRESSA FRANKS Department: Room: - Gender: Female Digital Printer: : 1995 Requested By: Billie Potter Order Number: [id number] Reading MD: Billie Potter Measurements Intervals [place] Rate: 67 P: 9 [place]: 140 QRS: 0 QRSD: 103 T: 24 QT: 418 QTc: 442 Interpretive Statements SINUS RHYTHM MODERATE VOLTAGE CRITERIA FOR LVH, CONSIDER NORMAL VARIANT [MEETS CRITERIA IN ONE OF: R(aVL), S(V1), R(V5), R(V5/V6)+S(V1)] No previous ECG available for comparison /store/S0/[id number].pdf
--- NOTE | 2025-06-24 06:08 | XR_ITS ---
EXAMINATION: AP chest single view TECHNIQUE: AP portable upright chest single view Date and time: June 24, 2025, 0612 hours, comparison February 12, 2025 INDICATIONS:*Chest pain today FINDINGS: Minimal prominence left ventricle. No pneumonia or pulmonary edema. Mild osteopenia. IMPRESSION: No active disease
[2025-06-24] MEDS: hydrALAZINE INJ 20 MG/ML VIAL 10 MG IVP (06:20)
[2025-06-24 06:26] LABS: Basophils # (Auto) 0.0 Thou/mm3 (0.0-0.2); Basophils % (Auto) 0 % (0-2.5); Eosinophils # (Auto) 0.0 Thou/mm3 (0.0-0.5); Eosinophils % (Auto) 0 % (0-10); Hematocrit 42.8 % (36.0-46.0); Hemoglobin 14.3 g/dL (12.0-16.0); Immature Granulocytes Auto 0.06 Thou/mm3 (0.00-0.00); Lymphocytes # (Auto) 1.4 Thou/mm3 (1.0-4.8); Lymphocytes % (Auto) 19 % (10-50); Mean Corpuscular HGB Conc 33.4 g/dl (31.0-37.0); Mean Corpuscular Hemoglobin 27.8 pg (25.0-35.0); Mean Corpuscular Volume 83 fL (80-100); Monocytes # (Auto) 0.3 Thou/mm3 (0.0-0.8); Monocytes % (Auto) 4 % (0-12); Neutrophils # (Auto) 5.6 Thou/mm3 (1.8-7.7); Neutrophils % (Auto) 76 % (37-80); Nucleated Red Blood Cell # 0.00 Thou/mm3 (0.00-0.00); Nucleated Red Blood Cell % 0 /100 WBC (0); Platelet Count 249 Thou/mm3 (140-440); RDW Standard Deviation 38.7 fL (36.4-46.3); Red Blood Count 5.14 Miln/mm3 (4.00-5.20); White Blood Count 7.4 Thou/mm3 (3.6-11.0)
[2025-06-24 06:59] LABS: INR 1.0 (0.9-1.3); Partial Thromboplastin Time 24.3 Seconds (22.0-36.0); Prothrombin Time 10.3 Seconds (9.0-12.2)
[2025-06-24 07:05] LABS: Alanine Aminotransferase 63 U/L (10-49); Albumin, Serum 4.8 gm/dL (3.5-5.0); Albumin/Globulin Ratio 1.8 (1.2-2.2); Alkaline Phosphatase 75 U/L (46-116); Anion Gap 11 (7-16); Aspartate Amino Transferase 50 U/L (0-34); BUN/Creatinine Ratio 19 Ratio (12-20); Bilirubin,Total 0.4 mg/dL (0.3-1.2); Blood Urea Nitrogen 17 mg/dL (9-23); Calcium 9.2 mg/dL (8.3-10.6); Calcium (Corrected) 9.2 mg/dL (8.5-10.1); Carbon Dioxide 24.1 mMol/L (20.0-31.0); Chloride 105 mMol/L (98-107); Creatinine (Component) 0.9 mg/dL (0.6-1.3); Estimated Creatinine Clearance 103.0 mL/min (>60); Globulin 2.7 gm/dL (2.3-3.5); Glucose 276 mg/dL (74-106); Lipase 28 U/L (12-53); Magnesium 1.8 mg/dL (1.6-2.6); Osmolality,Calculated 290 (275-295); Potassium 4.1 mMol/L (3.4-5.1); Sodium 140 mMol/L (136-145); Total Protein 7.5 gm/dL (5.7-8.2); Troponin I < 0.002 ng/mL (0.0-0.045); eGFR > 60 See Note
[2025-06-24 07:14] LABS: B-Type Natriuretic Peptide < 20 pg/mL (0-100)
[2025-06-24 07:32] LABS: Collection Type, Urine Clean Catch
[2025-06-24 07:47] LABS: Amphetamine/Methamp Scrn,U Positive (Negative); Barbiturate Screen,Urine Negative (Negative); Benzodiazepines Screen,Urine Negative (Negative); Benzoylecgonine Screen, Ur Negative (Negative); Fentanyl Screen,Urine Positive (Negative); Opiate Screen,Urine Negative (Negative); THC Screen,Urine Negative (Negative)
[2025-06-24 07:48] LABS: Bacteria,Urine Rare; Bilirubin,Urine Negative (Negative); Blood,Urine 2+ (Negative); Clarity,Urine Clear (Clear/Hazy); Color,Urine Yellow (Lt Yel-Yel); Culture Indicated,Urine Not Indicated; Glucose, Urine 4+ (Negative); Hyaline Casts,Urine < 1 /hpf (0-1); Ketones,Urine Trace (Negative); Leukocyte Esterase,Urine Negative (Negative); Nitrite,Urine Negative (Negative); PH,Urine 6.5 (5.0-7.0); Protein,Urine 3+ (Neg - Trace); RBC,Urine 26 /hpf (0-3); Specific Gravity,Urine 1.030 (1.001-1.035); Squamous Epithelial Cell,Urine 2 /hpf (0-5); Urobilinogen,Urine Negative mg/dL (0.0-1.0); WBC,Urine 6 /hpf (0-5)
[2025-06-24] MEDS: ONDANSETRON INJ 2 MG/ML INJ 2 ML 4 MG IVP (08:12)
--- NOTE | 2025-06-24 09:30 | PC.NURSE ---
social staff worker at bedside for mental eval.
--- NOTE | 2025-06-24 09:55 | PD.EDNV ---
Nausea/Vomit./Diarrhea-RME/HPI General Chief complaint: Nausea/Vomiting/Diarrhea Stated complaint: NAUSEA Time Seen by Provider: 06/24/25 06:08 Arrival date/time: 06/24/25 05:03 RME / HPI RME / HPI Narrative: 30 year old female patient presents to the ED BIBA for evaluation of nausea and vomiting. States her symptoms began around midnight today with no known modifying factors. During my evaluation, the patient began crying and states she was recently [facility] out of the [facility] staying [facility]. States she is recently homeless and had relapsed, used methamphetamine several days ago due to feeling depressed. Additionally states last night she found a white powdery substance and had used it in attempts to end her life. Patient states she is 6 months and was doing well until she relapsed recently. Patient states her child is living with the grandpa and is trying to get clean to get custody back. Related Data Previous Rx's ?Medication ?Instructions ?Recorded hydrocodone 5 mg-acetaminophen 325 1 tab PO Q6H PRN pain #20 tabs 02/13/25 mg tablet ibuprofen 600 mg tablet 600 mg PO Q6H PRN pain #30 tabs 02/13/25 hydrocortisone 2.5 % topical cream 1 applic DC QDAY PRN hemorrhoids 02/14/25 with perineal applicator #30 grams (Anusol-HC) labetalol 300 mg tablet 300 mg PO BID #60 tabs 02/14/25 lisinopril 40 mg tablet 40 mg PO QDAY #30 tabs 02/14/25 metformin 1,000 mg tablet,extended 1,000 mg PO QDAY #30 tabs 02/14/25 release 24hr (osmotic) nicardipine 20 mg capsule 20 mg PO BID #60 caps 02/14/25 Allergies Allergy/AdvReac Type Severity Reaction Status Date / Time No Known Allergies Allergy Verified 02/12/25 00:48 Review of Systems Review of Systems Systems Reviewed: All systems reviewed, normal except as documented Past Medical History Past Medical History CARDIAC: Positive Cardiac Disorders and Hypertension GASTROINTESTINAL: Positive Gastrointestinal Disorders and Obesity GENITOURINARY: Positive Genitourinary Disorders REPRODUCTIVE: Positive Previous Pregnancies and Syphilis ENDOCRINE: Positive Endocrine Disorders and Diabetes Mellitus Type 2 PSYCHO/SOCIAL: Positive Recreational Drug Use, Depression and Anxiety Family History FAMILY HISTORY: Positive Family Cardiac Disorders Social History SMOKING STATUS: Unknown if ever smoked SECOND HAND EXPOSURE: No ED Exam Narrative Physical exam: GENERAL APPEARANCE: alert and oriented x 4, well-developed, well-nourished, tearful HEENT: Normocephalic, atraumatic; pupils equal, round, reactive to light; EOMI; mucous membranes pink, moist; oropharynx clear NECK: Supple LUNGS: CTABL; no wheezes, no rales, no rhonchi HEART: Regular rate, regular rhythm; normal S1, S2; no murmurs ABDOMEN: non distended; normal BS; soft, no tenderness, no guarding, no rebound; no masses, no organomegaly, no hernia BACK: no CVA tenderness EXTREMITIES: atraumatic; no edema NEUROLOGIC: awake; alert and oriented x4; cranial nerves II-XII grossly intact; no focal sensory or motor deficits PSYCHIATRIC: Tearful SKIN: warm, dry, normal color; no rashes Course Course Course Narrative: 0730: Patient medically cleared for mental health evaluation. 1040: Patient has been evaluated by CAMILLE Pérez. States at this time patient was emotional though does not have any thoughts of suicidal ideation. States patient has no previous mental health history or previous attempts. States at this time the patient does not meet 5150 criteria and both patient and mother and willing to safety plan. I do not agree with this plan. Plan is to have the patient reassessed. 1500: Patient has been evaluated by CAMILLE Atkinson who had performed a second evaluation on the patient. States patient at this time is thankful nothing serious happened to her. No SI at this time. States patient does not meet 5150 hold criteria. both patient and mother are willing to safety plan. Patient has remained stable through ED course. Patient will be discharged home. Quality Measures none Orders Category Date Time Status 1799 Psychiatric Hold NOW Care 06/24/25 07:00 Ordered Plumber Gasfitter NOW Care 06/24/25 06:08 Active EKG (ED ONLY) *Do not use* NOW Care 06/24/25 06:08 Completed One-to-one observation NOW Care 06/24/25 06:56 Active Diet Regular Diet 06/24/25 Breakfast Active EKG (ED Only) Stat Exams 06/24/25 06:08 Draft XR chest 1V portable Stat Exams 06/24/25 06:08 Completed B-Type Natriuretic Peptide Stat Lab 06/24/25 06:14 Completed CBC Stat Lab 06/24/25 06:14 Completed Comprehensive Metabolic Panel Stat Lab 06/24/25 06:14 Completed Drug Screen,Urine Stat Lab 06/24/25 07:00 Completed Lipase Stat Lab 06/24/25 06:14 Completed Magnesium Stat Lab 06/24/25 06:14 Completed Partial Thromboplastin Time Stat Lab 06/24/25 06:14 Completed Prothrombin Time with INR Stat Lab 06/24/25 06:14 Completed Troponin I Stat Lab 06/24/25 06:14 Completed UA, C/S IF [Urinalysis, C/S if Indicated] Stat Lab 06/24/25 07:00 Completed Metoclopramide Inj [Reglan Inj] Med 06/24/25 11:54 Discontinued 10 mg IVP X1 ONE Ondansetron Inj [Zofran Inj] Med 06/24/25 08:03 Discontinued 4 mg IVP X1 ONE Sodium Chloride 0.9% 1000 ml [Ns] 1,000 ml Med 06/24/25 11:53 Discontinued IV 999 mls/hr hydrALAZINE INJ [Apresoline Inj] Med 06/24/25 06:08 Discontinued 10 mg IVP X1 ONE Vital Signs Vital signs: Vital Signs Temperature 97.6 F 06/24/25 05:15 Pulse Rate 71 06/24/25 05:15 Respiratory Rate 15 06/24/25 05:15 Blood Pressure 213/141 H 06/24/25 05:15 Pulse Oximetry (%) 100 06/24/25 05:15 Oxygen Delivery Method Room Air 06/24/25 05:15 Pulse ox is 100% on room air which is adequate. Nausea/Vomiting/Diarrhea MDM Narrative MDM Narrative:: Lashell Khan am scribing for and in the presence of Dr. Heredia. Patient data External records reviewed:: [facility] previous records Clinical information provided by:: patient Social determinants that could affect healthcare access:: substance use Patient has the following chronic illnesses:: gestational hypertension and diabetes. hx of meth use. How is presenting disease/condition affected by chronic disease/condition?: exacerbated by Evaluation data The following diagnostics were reviewed and interpreted by me:: radiology exam(s) and EKG tracing(s) (EKG @ 06:45 AM. Normal sinus rhythm, rate 67, no STEMI. ) Lab and/or radiology exams considered but not ordered:: None Interpretation Summary: Ordering Physician: Billei Heredia MD Date of Service: 06/24/25 Procedure(s): XR chest 1V portable Accession Number(s): [id number] cc: Amanuel Clayton MD; Seth Arnold MD; Billie Heredia MD~ EXAMINATION: AP chest single view TECHNIQUE: AP portable upright chest single view Date and time: June 24, 2025, 0612 hours, comparison February 12, 2025 INDICATIONS:*Chest pain today FINDINGS: Minimal prominence left ventricle. No pneumonia or pulmonary edema. Mild osteopenia. IMPRESSION: No active disease Dictated By: Seth Arnold MD Signed By: <Electronically signed by Seth Arnold MD in OV> 06/24/25 0756 Medications / Prescriptions Medications / Prescriptions considered but not ordered:: None Medication administrations:: Medication Administration History Discontinued Medications Hydralazine HCl (Hydralazine Inj 20 Mg/Ml Vial) 10 mg IVP X1 ONE Stop: 06/24/25 06:09 Last Admin: 06/24/25 06:20 Dose: 10 mg Documented By: DYLAN Sodium Chloride (Ns) 1,000 mls @ 999 mls/hr IV .Q1H1M ONE Stop: 06/24/25 12:53 Last Infusion: 06/24/25 13:10 Dose: Infused Documented By: Admin: 06/24/25 11:58 Dose: 999 mls/hr Documented By: GIGI Metoclopramide HCl (Metoclopramide Inj 5 Mg/Ml Vial 2 Ml) 10 mg IVP X1 ONE; Protocol Stop: 06/24/25 11:55 Last Admin: 06/24/25 11:58 Dose: 10 mg Documented By: GIGI Ondansetron HCl (Ondansetron Inj 2 Mg/Ml Inj 2 Ml) 4 mg IVP X1 ONE; Protocol Stop: 06/24/25 08:04 Last Admin: 06/24/25 08:12 Dose: 4 mg Documented By: GIGI See above Consultations Consultation(s) initiated? (list below): No Diagnosis Nausea Differential Diagnosis: gastroenteritis, drug-induced nausea and vomiting and dehydration Most likely diagnosis given after review of the tests above:: Vomiting Suicidal ideation Admission Indicated Admission indicated?: not indicated Admission Request Was there a request for admission?: No Disposition Plan Disposition Plan: Discharge Discharge Attestation Discharge Attestation: The patient and all family members were given an opportunity to ask questions and understood the discharge instructions. Discharge instructions specifically effects, indications for sooner follow up or return to the emergency department, and the expected course of current diagnosis. Patient condition: Stable Discharge Plan Plan Patient Disposition: HOME (Self Care) Prescriptions/Referrals Prescriptions/Med Rec: No Action hydrocodone-acetaminophen 5-325 mg tablet 1 tab PO Q6H MDD 4 PRN (Reason: pain) Qty: 20 0RF Rx Instructions: she had a c section ibuprofen 600 mg tablet 600 mg PO Q6H PRN (Reason: pain) Qty: 30 0RF nicardipine 20 mg capsule 20 mg PO BID Qty: 60 1RF lisinopril 40 mg tablet 40 mg PO QDAY Qty: 30 1RF hydrocortisone [Anusol-HC] 2.5 % cream with perineal applicator 1 applic DC QDAY PRN (Reason: hemorrhoids) Qty: 30 1RF metformin 1,000 mg tablet extended release 24hr 1,000 mg PO QDAY Qty: 30 1RF labetalol 300 mg tablet 300 mg PO BID Qty: 60 1RF Referrals: Amanuel Clayton MD [Primary Care Provider, Family Practice] - In 1 week Problem List Clinical Impression: Vomiting, Suicidal ideations Patient/Caregiver Discharge Instructions Education Materials: Warning Signs of Suicide and ..., ED Vomiting (Adult) Print Language: Italian Stand Alone Forms: Shani Award Info., Patient Portal Info Letter
--- NOTE | 2025-06-24 10:45 | PC.SS ---
SS scheduled an intake appointment for the patient at [facility] for SundayJun 26 at 1PM. Patient's first assessment appointment will be Jun 30 at 3PM. SS sent referral to [facility] Via fax. SS will provide patient with Community Resources, Family crisis Center, Drug and ETOH resources. SS will provide patient with appointment information to [facility]. SS informed Radha STERLING to contact SS when patient is discharge to arrange transportation. SS will stand by for further needs.
--- NOTE | 2025-06-24 10:46 | PC.CM ---
Mental health evaluation was requested by Dr. Pettit; patient has been deemed medically cleared. Demographic information indicate patient?s c/o is nausea.. LABORER RAGS and TOM Kennedy inquired with bedside nurse, JABARI Mcleod about the reason for the mental health evaluation; RN reports the patient reported ingesting a white substance in the attempt to end her life. Toxicology indicates patient was positive for fentanyl and amphetamine. LABORER RAGS and TOM Kennedy made face to face contact with the patient. Reason and role were explained to the patient. Patient was able to verify her and home address to her mom, Alise Guadalupe. LABORER RAGS inquired about the event that occurred yesterday as the patient reports that she was [facility]; center and area where she was residing at and receiving services. Patient reports that she failed to complete her chores, therefore she was asked to leave the center. Patient reports this was her second time not completing them. She asked the director to give her another opportunity but due to the rules they have, she was asked to leave. The patient reports that she is able to return to the center but she would need to wait 30 days. LABORER RAGS inquired with the patient about any alcohol use. Patient denies hx of alcohol use. Patient admits to using meth. Patient reports she previously had been sober for 4 months before using yesterday. Patient reports that after using meth, she proceeded to ingest a white substance that she had found. Patient does not know what the substance was or how much it was. Patient reports that she found it. LABORER RAGS inquired about the reason she ingested the substance as this was a concern along with the statement she had made; stating she did it with the attempt to end her life. Patient repots that she ingested the substances after using meth.Patient acknowledged the event that occurred yesterday along with not reporting to [facility]; patient reports she has an open case with [facility]. Patient reports that she was scheduled to report and complete a urine test for [facility] but failed to show up for her scheduled appointment. Patient denies any mental health diagnoses. Patient denies any past suicide attempts. Patient denies having any current self inflicted lacerations. LABORER RAGS observed claudio on her right arm; patient reports they are old scars from a dog bite. Patient denies auditory and visual hallucinations. Patient denies wanting to harm herself and others. Patient denies having commanding suicidal thoughts at this moment. Patient denies feeling the same way as she felt yesterday. She reports that she feels upset that she relapsed but takes responsibility for her actions. Patient reports that she is willing to safety plan, she identifies her mother, Alise Guadalupe as a supportive person. Patient also reports that she is willing to receive mental health services. LABORER RAGS spoke with Alise Guadalupe over the phone with TOM Kennedy and the patient in the room. Discussed safety plan with mother including being able to reside/supervise the patient for the next 72 hours. Mother is lock up all sharps and medications. Mother denies there are guns in the home. Patient agrees to follow up with a scheduled appointment with Davie Egan. Patient is willing to safety plan. During the contact patient was engaging and participating with the contact. Patient did appear emotional when asked about the events that have transpired yesterday and her situation with [facility]. Patient appeared receptive to the outpatient mental health resources as she reports she had already obtained information from Davie Egan. At this time, patient does not meet 5150 criteria. Patient and mother are willing to safety plan. Dr. Pettit was made aware of evaluation completed. ?
[2025-06-24] MEDS: SODIUM CHLORIDE 0.9% 1000 ML 1,000 ML 999 ML IV (11:58)
[2025-06-24] MEDS: METOCLOPRAMIDE INJ 5 MG/ML VIAL 2 ML 10 MG IVP (11:58)
--- NOTE | 2025-06-24 12:05 | PC.NURSE ---
pt started to get nauseated and vomiting md aware and ordered iv fluid and nausea meds.
--- NOTE | 2025-06-24 14:45 | PC.NURSE ---
PT EVALUATED BY ANOTHER ARTIFICIAL CANDY MAKER AT THIS TIME.
--- NOTE | 2025-06-24 14:54 | PC.CC ---
DATA CONVERSION OPERATOR requested to do a second evaluation of patient. DATA CONVERSION OPERATOR spoke with patient who went through the reason she is here. She states she had a bad day where things just kept piling up, so she found and took a white substance. She states at the time of taking the substance, she was thinking it might result in her , and that she was ok with that risk. She now states that she is glad it did not work. She states she feels that it is a emeli sign that she survived and that means she is meant to be alive and that she still has things to do on earth. At this time she denies all SI and states that she just wants to go home with her mom and hug her. She states she has spoken to her mom during her stay and that her mom knows all that has happened and that she is fine to live with her. She says that the transitional home she was in was in an effort to gain independent housing, and that prior to that, she lived with her mom without issue. Pt states she is looking forward to a visit with her son on Sunday, going to her daily NA meetings again, and finding ways to get back into the routine she had established. She says it will be more difficult now because her mom lives on the other side of [facility], but that she will call her workers and see if they can assist with transportation. PT denied SI throughout the assessment, made statements re: future plans, expressed remorse re: the actions she took and is ready to discharge. At this time the patient does not meet criteria for an ongoing involuntary hold. Safety plan can be used as previously established with CAMILLE Mireles. - [place], [facility] [id number]
--- NOTE | 2025-06-24 15:01 | PC.NURSE ---
PT TOLERATED JELLO AND APPLE JUICE.
--- NOTE | 2025-06-24 16:11 | PC.SS ---
SS follow up note; SS contacted [employer] to inform her that SS would be leaving at 4:30, therefore SS could assist with setting up transportation, at the time patient is not ready.
--- NOTE | 2025-06-24 16:33 | PC.NURSE ---
PT GIVEN SANDWICH AND JUICE. TOLERATED WELL
== END 2025-06-24 17:07 | disposition home or self-care (01) ==
PROVIDERS: Emergency Provider Emergency Medicine; PCP Family Medicine
DX: R45.851 Suicidal ideations (principal)
CPT/HCPCS: 36415; 71045; 80053; 80307; 80320; 81001; 83690; 83735; 83880; 84484; 85025; 85610; 85730; 93005; 96127; 96361; 96374; 96375; 99285; J0360; J2405; J2765; J7030; G0480